=== PATIENT | female | born 1940 | race Caucasian/White ===

== ENCOUNTER 2016-10-13 03:45 | Emergency (ER) | payer MEDICARE, MEDICAID ==
[~2016-10-13] VITALS: Ht 165.1 cm; Wt 56.0 kg
[~2016-10-13 03:45] MED LIST: ACET-3161 PO; ATOR40TA70 PO; LEVO100T9 PO; LISI-186 PO
[2016-10-13] MEDS ORDERED: MORPHINE SULFATE 4 MG/ML CPJ (NOT FOR IM USE) IV STA (06:19)
[2016-10-13] MEDS ORDERED: ONDANSETRON HCL 4MG/2ML VIAL IV STA (06:19)
[2016-10-13 07:05] LABS: HEMATOCRIT. 34.9 % (36.0-48.0); MEAN CORPUSCULAR VOLUME 87.5 fL (81.0-99.0); MEAN PLATELET VOLUME 9.9 fl (7.4-10.4); RED BLOOD CELL COUNT 3.98 mill/uL (4.2-5.4); RED CELL DISTRIBUTION WIDTH 16.5 % (11.6-14.6)
[2016-10-13 08:00] LABS: CLARITY URINE CLOUDY (CLEAR); COLOR URINE YELLOW (YELLOW); PH URINE 5.5 (4.5-8.0); PROTEIN URINE NEGATIVE (NEGATIVE); SPECIFIC GRAVITY URINE 1.019 (1.005-1.030)
[2016-10-13 08:01] LABS: GLUCOSE URINE 2+ (NEGATIVE); KETONES URINE TRACE (NEGATIVE); LEUKOCYTE ESTERASE URINE 3+ (NEGATIVE); NITRITE URINE POSITIVE (NEGATIVE); OCCULT BLOOD URINE TRACE (NEGATIVE); UROBILINOGEN URINE 0.2 E.U./dL (0.2-1.0)
[2016-10-13] MEDS ORDERED: CEFTRIAXONE 1 G PREMIX 50 ML IV ONE (08:15)
[2016-10-13 08:17] LABS: HEMOGLOBIN. 11.5 g/dL (12.0-16.0); MEAN CORPUSCULAR HEMOGLOBIN 28.9 pg (28.0-32.0)
[2016-10-13 08:21] LABS: CARBON DIOXIDE 25 mEq/L (21-32); CHLORIDE 94 mEq/L (98-107)
[2016-10-13 09:01] LABS: PLATELET ESTIMATE NORMAL
[2016-10-13 09:02] LABS: PLATELET 172 x1000/uL (130-400)
[2016-10-13 09:59] VITALS: BP 120/76
== END 2016-10-13 11:11 | disposition home or self-care (01) ==
LOC: ER 07:29
DX: N39.0 Urinary tract infection, site not specified (principal); I10 Essential (primary) hypertension; Z90.49 Acquired absence of other specified parts of digestive tract
CPT/HCPCS: 36415; 74176; 80053; 81001; 83690; 85025; 93005; 96365; 96375; 99285; J0696; J2270; J2405

== ENCOUNTER 2016-12-12 06:37 | Emergency (ER) | payer MEDICARE, MEDICAID ==
[~2016-12-12] VITALS: Ht 165.1 cm; Wt 52.0 kg
[2016-12-12] MEDS ORDERED: KETOROLAC 30MG/ML VIAL IV STA (07:07)
[2016-12-12] MEDS ORDERED: SODIUM CHLORIDE 0.9% 500 ML IV ONE (08:08)
[2016-12-12] MEDS ORDERED: MORPHINE SULFATE 4 MG/ML CPJ (NOT FOR IM USE) IV ONE (08:15)
[2016-12-12 08:16] LABS: HEMATOCRIT. 33.2 % (36.0-48.0); MEAN CORPUSCULAR VOLUME 89.4 fL (81.0-99.0); MEAN PLATELET VOLUME 8.2 fl (7.4-10.4); PLATELET 263 x1000/uL (130-400); RED BLOOD CELL COUNT 3.71 mill/uL (4.2-5.4); RED CELL DISTRIBUTION WIDTH 15.2 % (11.6-14.6)
[2016-12-12 08:17] LABS: HEMOGLOBIN. 11.1 g/dL (12.0-16.0)
[2016-12-12 08:18] LABS: MEAN CORPUSCULAR HEMOGLOBIN 29.9 pg (28.0-32.0)
[2016-12-12 08:22] LABS: CARBON DIOXIDE 21 mEq/L (21-32); CHLORIDE 103 mEq/L (98-107); PLATELET ESTIMATE NORMAL
[2016-12-12 08:32] LABS: INR 0.9; PROTHROMBIN TIME 9.7 sec (9.4-11.6)
[2016-12-12 09:38] LABS: CLARITY URINE CLOUDY (CLEAR); COLOR URINE YELLOW (YELLOW); GLUCOSE URINE 3+ (NEGATIVE); KETONES URINE NEGATIVE (NEGATIVE); LEUKOCYTE ESTERASE URINE 2+ (NEGATIVE); NITRITE URINE POSITIVE (NEGATIVE); OCCULT BLOOD URINE NEGATIVE (NEGATIVE); PROTEIN URINE NEGATIVE (NEGATIVE); SPECIFIC GRAVITY URINE 1.022 (1.005-1.030); UROBILINOGEN URINE 0.2 E.U./dL (0.2-1.0)
[2016-12-12] MEDS ORDERED: CEFTRIAXONE 1 G PREMIX 50 ML IV ONE (10:00)
[2016-12-12 11:15] VITALS: BP 145/71
== END 2016-12-12 11:36 | disposition home or self-care (01) ==
LOC: ER 07:14
DX: N39.0 Urinary tract infection, site not specified (principal); K59.00 Constipation, unspecified; R06.02 Shortness of breath; R07.2 Precordial pain; I10 Essential (primary) hypertension; E11.9 Type 2 diabetes mellitus without complications; E78.00 Pure hypercholesterolemia, unspecified; I25.2 Old myocardial infarction; M19.90 Unspecified osteoarthritis, unspecified site; Z86.73 Personal history of transient ischemic attack (TIA), and cerebral infarction without residual deficits; Z90.49 Acquired absence of other specified parts of digestive tract
CPT/HCPCS: 36415; 74176; 80053; 81001; 82962; 83690; 85025; 85610; 93005; 96361; 96365; 96375; 99285; J0696; J2270; J7040; J7030

== ENCOUNTER 2016-12-14 12:40 | Emergency (ER) | payer MEDICAID, MEDICARE ==
[~2016-12-14] VITALS: Ht 157.5 cm; Wt 65.0 kg
[2016-12-14] MEDS: KETOROLAC 30MG/ML VIAL IV STA ×2 (13:39→13:41)
[2016-12-14] MEDS: ONDANSETRON HCL 4MG/2ML VIAL IV STA ×2 (13:40→13:42)
[2016-12-14 14:22] LABS: RED BLOOD CELL COUNT 3.82 mill/uL (4.2-5.4)
[2016-12-14 14:23] LABS: HEMATOCRIT. 33.9 % (36.0-48.0); HEMOGLOBIN. 11.1 g/dL (12.0-16.0); MEAN CORPUSCULAR HEMOGLOBIN 29.1 pg (28.0-32.0)
[2016-12-14 14:24] LABS: MEAN PLATELET VOLUME 8.4 fl (7.4-10.4); PLATELET 251 x1000/uL (130-400); RED CELL DISTRIBUTION WIDTH 15.5 % (11.6-14.6)
[2016-12-14] MEDS ORDERED: IOHEXOL-300 100 ML BOTTLE ONE (14:39)
[2016-12-14] MEDS ORDERED: SODIUM CHLORIDE 0.9% 10ML VIAL ONE (14:39)
[2016-12-14 14:42] LABS: PROTHROMBIN TIME 10.1 sec (9.4-11.6)
[2016-12-14 15:18] LABS: PLATELET ESTIMATE NORMAL
[2016-12-14 15:31] LABS: CHLORIDE 102 mEq/L (98-107)
[2016-12-14 15:40] LABS: CARBON DIOXIDE 23 mEq/L (21-32)
[2016-12-14 16:52] LABS: CLARITY URINE CLEAR (CLEAR); COLOR URINE YELLOW (YELLOW); GLUCOSE URINE TRACE (NEGATIVE); KETONES URINE TRACE (NEGATIVE); LEUKOCYTE ESTERASE URINE NEGATIVE (NEGATIVE); NITRITE URINE NEGATIVE (NEGATIVE); OCCULT BLOOD URINE NEGATIVE (NEGATIVE); PH URINE 5.5 (4.5-8.0); PROTEIN URINE TRACE (NEGATIVE); SPECIFIC GRAVITY URINE 1.016 (1.005-1.030); UROBILINOGEN URINE 0.2 E.U./dL (0.2-1.0)
[2016-12-14 17:09] VITALS: BP 156/90
== END 2016-12-14 17:12 | disposition home or self-care (01) ==
LOC: ER 12:40
DX: K59.00 Constipation, unspecified (principal); N39.0 Urinary tract infection, site not specified; G89.29 Other chronic pain; R10.13 Epigastric pain; I10 Essential (primary) hypertension; E11.9 Type 2 diabetes mellitus without complications; E78.00 Pure hypercholesterolemia, unspecified; I25.2 Old myocardial infarction; Z86.73 Personal history of transient ischemic attack (TIA), and cerebral infarction without residual deficits
CPT/HCPCS: 36415; 74177; 80053; 81001; 83690; 85025; 85610; 93005; 99285; A4216; J1885; J2405; Q9967

== ENCOUNTER 2017-01-03 03:09 | Inpatient (IN) | payer MEDICARE, MEDICAID ==
[~2017-01-03] VITALS: Ht 165.1 cm; Wt 59.0 kg
[2017-01-03] MEDS ORDERED: SODIUM CHLORIDE 0.9% 500 ML IV ONE (06:02)
[2017-01-03] MEDS ORDERED: FAMOTIDINE 20MG/2ML VIAL IV STA (06:22)
[2017-01-03] MEDS ORDERED: MORPHINE SULFATE 4 MG/ML CPJ (NOT FOR IM USE) IV STA (06:22)
[2017-01-03] MEDS ORDERED: ONDANSETRON HCL 4MG/2ML VIAL IV STA (06:22)
[2017-01-03 06:38] LABS: HEMATOCRIT. 36.2 % (36.0-48.0); HEMOGLOBIN. 12.7 g/dL (12.0-16.0); MEAN CORPUSCULAR HEMOGLOBIN 31.2 pg (28.0-32.0); MEAN CORPUSCULAR VOLUME 88.9 fL (81.0-99.0); MEAN PLATELET VOLUME 9.2 fl (7.4-10.4); RED BLOOD CELL COUNT 4.07 mill/uL (4.2-5.4); RED CELL DISTRIBUTION WIDTH 15.1 % (11.6-14.6)
[2017-01-03 06:48] LABS: PARTIAL THROMBOPLASTIN TIME 24.1 sec (23.4-31.0); PROTHROMBIN TIME 10.1 sec (9.4-11.6)
[2017-01-03 06:55] LABS: CARBON DIOXIDE 24 mEq/L (21-32); CHLORIDE 97 mEq/L (98-107); TROPONIN I < 0.02 ng/mL (0.00-0.04)
[2017-01-03 07:20] LABS: NUCLEATED RED BLOOD CELLS 1 /100 WBC
[2017-01-03 07:21] LABS: PLATELET ESTIMATE NORMAL
[2017-01-03 07:22] LABS: PLATELET 232 x1000/uL (130-400)
[2017-01-03 10:30] VITALS: BP 160/68
[2017-01-03 12:00] VITALS: BP 177/105
[2017-01-03] MEDS ORDERED: DEXTROSE 50% WATER 50ML SYRINGE IV PRN (12:00)
[2017-01-03] MEDS ORDERED: CLONIDINE 0.1MG TABLET PO PRN (12:00)
[2017-01-03] MEDS: BLOOD SUGAR DIAGNOSTIC STRIP TEST SCH ×3 (12:24→21:37)
[2017-01-03] MEDS: ENOXAPARIN 40MG/0.4ML SYR SUBCUT SCH (12:30)
[2017-01-03] MEDS: INSULIN LISPRO 100 UNITS/ML SUBCUT SCH ×3 (12:36→21:37)
[2017-01-03] MEDS: MORPHINE SULFATE 4 MG/ML CPJ (NOT FOR IM USE) IV PRN ×2 (12:59→21:40)
[2017-01-03] MEDS ORDERED: KETOROLAC 15MG/ML VIAL IV PRN (13:00)
[2017-01-03] MEDS: PANTOPRAZOLE SODIUM 40 MG/VIAL IV SCH (16:19)
[2017-01-03] MEDS: ONDANSETRON HCL 4MG/2ML VIAL IV PRN ×2 (16:19→22:11)
[2017-01-03 17:00] VITALS: BP 90/49
[2017-01-03] MEDS: SODIUM CHLORIDE 0.9% 1,000 ML IV SCH (18:16)
[2017-01-03 20:00] VITALS: BP 102/55
[2017-01-04] VITALS: BP 110/63
[2017-01-04 04:00] VITALS: BP 138/65
[2017-01-04] MEDS: SODIUM CHLORIDE 0.9% 1,000 ML IV SCH (05:25)
[2017-01-04] MEDS: ONDANSETRON HCL 4MG/2ML VIAL IV PRN (05:26)
[2017-01-04] MEDS: MORPHINE SULFATE 4 MG/ML CPJ (NOT FOR IM USE) IV PRN ×2 (05:30→09:50)
[2017-01-04] MEDS: BLOOD SUGAR DIAGNOSTIC STRIP TEST SCH ×2 (06:45→11:52)
[2017-01-04] MEDS: INSULIN LISPRO 100 UNITS/ML SUBCUT SCH ×2 (06:48→12:19)
[2017-01-04 07:26] LABS: HEMATOCRIT 33.1 % (36.0-48.0); HEMOGLOBIN 11.4 g/dL (12.0-16.0)
[2017-01-04 08:00] VITALS: BP 144/77
[2017-01-04] MEDS: PANTOPRAZOLE SODIUM 40 MG/VIAL IV SCH (08:54)
[2017-01-04] MEDS: ENOXAPARIN 40MG/0.4ML SYR SUBCUT SCH (08:59)
[2017-01-04] MEDS ORDERED: ACETAMINOPHEN 325MG TABLET PO PRN (12:15)
[2017-01-04] MEDS ORDERED: PROT40 PO (12:55)
[2017-01-04] MEDS ORDERED: LACTULOSE 20G/30ML UDC PO SCH (13:00)
[2017-01-04 13:26] LABS: HEMATOCRIT. 33.1 % (36.0-48.0); HEMOGLOBIN. 11.4 g/dL (12.0-16.0); MEAN CORPUSCULAR HEMOGLOBIN 30.9 pg (28.0-32.0); MEAN CORPUSCULAR VOLUME 89.3 fL (81.0-99.0); MEAN PLATELET VOLUME 9.4 fl (7.4-10.4); PLATELET 162 x1000/uL (130-400); RED CELL DISTRIBUTION WIDTH 15.3 % (11.6-14.6)
[2017-01-04 13:46] LABS: AMYLASE 26 IU/L (25-115); CARBON DIOXIDE 24 mEq/L (21-32); CHLORIDE 101 mEq/L (98-107)
[2017-01-04 13:56] VITALS: BP 151/75
[2017-01-04] MEDS ORDERED: LIDOCAINE 5% PATCH TOP SCH (14:00)
[2017-01-04 14:02] LABS: NUCLEATED RED BLOOD CELLS 1 /100 WBC
[2017-01-04] MEDS ORDERED: PANTOPRAZOLE SODIUM 40 MG/VIAL IV SCH (21:00)
[2017-03-05] MEDS ORDERED: TRAM50TA3 PO (18:39)
[2017-03-05] MEDS ORDERED: CIPR-168 PO (18:39)
== END 2017-01-04 14:15 | disposition home or self-care (01) | DRG 254 ==
LOC: ER 03:10 → EDBEDREQ 07:19 → ENRESERV 07:50 → 8WST 08:11 → EDBEDREQTM 08:13 → EDBEDREQ 08:13
PROVIDERS: ADMIT Family Medicine; ATTEND Family Medicine
DX: K92.1 Melena (principal); K31.84 Gastroparesis; E11.43 Type 2 diabetes mellitus with diabetic autonomic (poly)neuropathy; N39.0 Urinary tract infection, site not specified; I10 Essential (primary) hypertension; E78.00 Pure hypercholesterolemia, unspecified; E78.1 Pure hyperglyceridemia; E78.5 Hyperlipidemia, unspecified; E89.0 Postprocedural hypothyroidism; Z96.641 Presence of right artificial hip joint; M19.90 Unspecified osteoarthritis, unspecified site; G89.29 Other chronic pain; M81.0 Age-related osteoporosis without current pathological fracture; Z87.81 Personal history of (healed) traumatic fracture; Z90.49 Acquired absence of other specified parts of digestive tract; Z90.710 Acquired absence of both cervix and uterus; Z79.899 Other long term (current) drug therapy; Z98.891 History of uterine scar from previous surgery
CPT/HCPCS: 36415; 71010; 74000; 74176; 80053; 80076; 82150; 82248; 82962; 83605; 83690; 83735; 83880; 84484; 85014; 85018; 85025; 85610; 85730; 87040; 93005; 96361; 96374; 96375; 99285; C9113; J1650; J1815; J1885; J2270; J2405; J3490; J7030; J7040

== ENCOUNTER 2017-06-26 23:54 | Inpatient (IN) | payer MEDICARE, MEDICAID ==
[~2017-06-26] VITALS: Ht 170.2 cm; Wt 67.6 kg
[~2017-06-26 23:54] MED LIST changes: +CIPR-168 PO; +PROT40 PO; +TRAM50TA3 PO
[2017-06-27] MEDS ORDERED: MORPHINE SULFATE 4 MG/ML CPJ (NOT FOR IM USE) IV STA (00:54)
[2017-06-27 01:27] LABS: CHLORIDE 96 mEq/L (98-107)
[2017-06-27 01:33] LABS: TROPONIN I < 0.02 ng/mL (0.00-0.04)
[2017-06-27] MEDS ORDERED: SODIUM CHLORIDE 0.9% 1,000 ML IV ONE (02:00)
[2017-06-27 02:06] LABS: INR 0.9; PROTHROMBIN TIME 9.8 sec (9.4-11.6)
[2017-06-27 02:10] LABS: HEMATOCRIT. 37.5 % (36.0-48.0); MEAN CORPUSCULAR VOLUME 88.1 fL (81.0-99.0); RED BLOOD CELL COUNT 4.26 mill/uL (4.2-5.4)
[2017-06-27 02:11] LABS: MEAN PLATELET VOLUME 9.4 fl (7.4-10.4); PLATELET 235 x1000/uL (130-400); RED CELL DISTRIBUTION WIDTH 15.5 % (11.6-14.6)
[2017-06-27 02:12] LABS: HEMOGLOBIN. 12.1 g/dL (12.0-16.0); MEAN CORPUSCULAR HEMOGLOBIN 28.4 pg (28.0-32.0)
[2017-06-27 03:43] LABS: CLARITY URINE CLEAR (CLEAR); COLOR URINE YELLOW (YELLOW); KETONES URINE TRACE (NEGATIVE); LEUKOCYTE ESTERASE URINE 2+ (NEGATIVE); NITRITE URINE NEGATIVE (NEGATIVE); OCCULT BLOOD URINE NEGATIVE (NEGATIVE); PH URINE 5.5 (4.5-8.0); PROTEIN URINE 1+ (NEGATIVE); SPECIFIC GRAVITY URINE 1.016 (1.005-1.030); UROBILINOGEN URINE 0.2 E.U./dL (0.2-1.0)
[2017-06-27] MEDS ORDERED: CEFTRIAXONE 1 G PREMIX 50 ML IV SCH (04:30)
[2017-06-27 04:49] LABS: PLATELET ESTIMATE NORMAL
[2017-06-27] MEDS ORDERED: MORPHINE SULFATE 4 MG/ML CPJ (NOT FOR IM USE) IV ONE (06:15)
[2017-06-27 08:40] VITALS: BP 169/83
[2017-06-27] MEDS ORDERED: ZOLPIDEM TARTRATE 5MG TABLET PO PRN (10:00)
[2017-06-27] MEDS ORDERED: NA PHOS,M-B/NA PHOS,DI-BA ENEMA 118ML PR PRN (10:00)
[2017-06-27] MEDS ORDERED: NITROGLYCERIN 0.4MG TABLET SL SL PRN (10:00)
[2017-06-27] MEDS ORDERED: DIPHENHYDRAMINE 50MG/ML VIAL IV PRN (10:00)
[2017-06-27] MEDS ORDERED: ACETAMINOPHEN 325MG TABLET PO PRN (10:00)
[2017-06-27] MEDS ORDERED: GUAIFENESIN 200MG/10ML SUGAR FREE UDC PO PRN (10:00)
[2017-06-27] MEDS ORDERED: DOCUSATE SODIUM 100MG CAPSULE PO PRN (10:00)
[2017-06-27] MEDS ORDERED: CLONIDINE 0.1MG TABLET PO PRN (10:00)
[2017-06-27] MEDS ORDERED: ONDANSETRON HCL 4MG/2ML VIAL IV PRN (10:00)
[2017-06-27] MEDS ORDERED: MAGNESIUM/ALUMINUM HYDROXIDE/SIMETHICONE 30ML UDC PO PRN (10:00)
[2017-06-27] MEDS ORDERED: IPRATROPIUM/ALBUTEROL 0.5-3(2.5)MG/3ML NEB INH PRN (10:00)
[2017-06-27 12:00] VITALS: BP 158/82
[2017-06-27] MEDS: ENOXAPARIN 40MG/0.4ML SYR SUBCUT SCH (13:24)
[2017-06-27] MEDS: LACTULOSE 20G/30ML UDC PO SCH ×3 (13:28→21:03)
[2017-06-27 16:00] VITALS: BP 158/77
[2017-06-27] MEDS: KETOROLAC 30MG/ML VIAL IV PRN (16:24)
[2017-06-27] MEDS ORDERED: DEXTROSE 50% WATER 50ML SYRINGE IV PRN (17:15)
[2017-06-27] MEDS: BLOOD SUGAR DIAGNOSTIC STRIP TEST SCH ×2 (17:20→21:06)
[2017-06-27] MEDS ORDERED: LEVO200T8 PO (18:34)
[2017-06-27] MEDS ORDERED: PANT40TA4 PO (18:34)
[2017-06-27] MEDS ORDERED: METO-539 PO (18:34)
[2017-06-27] MEDS ORDERED: ASPI-1159 PO (18:34)
[2017-06-27] MEDS ORDERED: LOSA50TA20 PO (18:34)
[2017-06-27] MEDS ORDERED: MELO-106 PO (18:34)
[2017-06-27] MEDS ORDERED: TERA1CAP4 PO (18:34)
[2017-06-27] MEDS ORDERED: CALC-816 PO (18:34)
[2017-06-27] MEDS ORDERED: SIMV20TA6 PO (18:34)
[2017-06-27] MEDS ORDERED: ZOLP10TA6 PO (18:34)
[2017-06-27] MEDS: INSULIN LISPRO 100 UNITS/ML SUBCUT SCH ×2 (18:52→21:00)
[2017-06-27 20:00] VITALS: BP 174/88
[2017-06-27] MEDS: METOPROLOL TARTRATE 25MG TABLET PO SCH (21:02)
[2017-06-27] MEDS: INSULIN GLARGINE UD 100 UNITS/ML SYR SUBCUT SCH (22:39)
[2017-06-28] VITALS: BP 168/84
[2017-06-28 04:00] VITALS: BP 150/79
[2017-06-28 05:18] LABS: *AMPHETAMINES SCREEN URINE NEGATIVE (NEGATIVE); *BARBITURATES SCREEN URINE NEGATIVE (NEGATIVE); *BENZODIAZEPINES SCREEN URINE NEGATIVE (NEGATIVE); *COCAINE SCREEN URINE NEGATIVE (NEGATIVE); METHADONE URINE SCREEN NEGATIVE (NEGATIVE)
[2017-06-28 05:24] LABS: CANNABINOID URINE SCREEN NEGATIVE (NEGATIVE); OPIATES URINE SCREEN PRESUMTIVE POSITIVE (NEGATIVE); PHENCYCLIDINE URINE SCREEN NEGATIVE (NEGATIVE)
[2017-06-28 06:26] LABS: HEMATOCRIT. 35.7 % (36.0-48.0); HEMOGLOBIN. 12.2 g/dL (12.0-16.0); MEAN CORPUSCULAR VOLUME 87.6 fL (81.0-99.0); MEAN PLATELET VOLUME 9.3 fl (7.4-10.4); PLATELET 103 x1000/uL (130-400); RED BLOOD CELL COUNT 4.07 mill/uL (4.2-5.4)
[2017-06-28] MEDS: CEFTRIAXONE 1 G PREMIX 50 ML IV SCH (06:27)
[2017-06-28] MEDS: LACTULOSE 20G/30ML UDC PO SCH ×3 (06:28→21:06)
[2017-06-28] MEDS: BLOOD SUGAR DIAGNOSTIC STRIP TEST SCH ×4 (06:37→20:07)
[2017-06-28] MEDS: INSULIN LISPRO 100 UNITS/ML SUBCUT SCH ×5 (07:50→21:00)
[2017-06-28 08:00] VITALS: BP 131/70
[2017-06-28 08:01] LABS: CHLORIDE 102 mEq/L (98-107)
[2017-06-28] MEDS: POTASSIUM CHLORIDE 20MEQ TABLET SR PO SCH (10:00)
[2017-06-28] MEDS: ENOXAPARIN 40MG/0.4ML SYR SUBCUT SCH (10:00)
[2017-06-28] MEDS: PANTOPRAZOLE SODIUM 40 MG/VIAL IV SCH (10:00)
[2017-06-28] MEDS: METOPROLOL TARTRATE 25MG TABLET PO SCH ×2 (10:00→20:04)
[2017-06-28 12:00] VITALS: BP 165/80
[2017-06-28 16:00] VITALS: BP 143/76
[2017-06-28] MEDS: KETOROLAC 30MG/ML VIAL IV PRN (17:06)
[2017-06-28 20:00] VITALS: BP_SYST 163; BP_SYST 63; BP_DIAS 92
[2017-06-28] MEDS: INSULIN GLARGINE UD 100 UNITS/ML SYR SUBCUT SCH (21:07)
[2017-06-28 23:56] LABS: PLATELET ESTIMATE NORMAL
[2017-06-29] VITALS: BP 192/103
[2017-06-29 01:00] VITALS: BP 155/78
[2017-06-29 04:00] VITALS: BP 133/45
[2017-06-29] MEDS: LACTULOSE 20G/30ML UDC PO SCH ×3 (06:00→21:15)
[2017-06-29] MEDS: CEFTRIAXONE 1 G PREMIX 50 ML IV SCH (06:06)
[2017-06-29] MEDS: BLOOD SUGAR DIAGNOSTIC STRIP TEST SCH ×4 (07:26→20:34)
[2017-06-29 08:00] VITALS: BP 101/62
[2017-06-29] MEDS: INSULIN LISPRO 100 UNITS/ML SUBCUT SCH ×4 (09:45→21:20)
[2017-06-29] MEDS: POTASSIUM CHLORIDE 20MEQ TABLET SR PO SCH (09:45)
[2017-06-29] MEDS: METOPROLOL TARTRATE 25MG TABLET PO SCH ×2 (09:47→20:26)
[2017-06-29] MEDS: PANTOPRAZOLE SODIUM 40 MG/VIAL IV SCH (09:47)
[2017-06-29] MEDS: ENOXAPARIN 40MG/0.4ML SYR SUBCUT SCH (10:00)
[2017-06-29] MEDS: KETOROLAC 30MG/ML VIAL IV PRN ×3 (11:22→23:28)
[2017-06-29] MEDS ORDERED: LEVOTHYROXINE SODIUM 150MCG TABLET PO SCH (11:45)
[2017-06-29 12:00] VITALS: BP 132/70
[2017-06-29 16:00] VITALS: BP 106/54
[2017-06-29] MEDS: INSULIN GLARGINE UD 100 UNITS/ML SYR SUBCUT SCH (21:20)
[2017-06-30] VITALS: BP 133/67
[2017-06-30 04:00] VITALS: BP 133/55
[2017-06-30] MEDS: LACTULOSE 20G/30ML UDC PO SCH (05:24)
[2017-06-30] MEDS: CEFTRIAXONE 1 G PREMIX 50 ML IV SCH (05:24)
[2017-06-30] MEDS: KETOROLAC 30MG/ML VIAL IV PRN (05:24)
[2017-06-30] MEDS: BLOOD SUGAR DIAGNOSTIC STRIP TEST SCH ×2 (06:32→12:34)
[2017-06-30] MEDS ORDERED: LEVOTHYROXINE SODIUM 200MCG TABLET PO SCH (07:20)
[2017-06-30 07:35] LABS: HEMATOCRIT 36.2 % (36.0-48.0); HEMOGLOBIN 12.4 g/dL (12.0-16.0); MEAN CORPUSCULAR HEMOGLOBIN 30.4 pg (28.0-32.0); MEAN CORPUSCULAR VOLUME 88.6 fL (81.0-99.0); PLATELET 120 x1000/uL (130-400); RED BLOOD CELL COUNT 4.09 mill/uL (4.2-5.4); RED CELL DISTRIBUTION WIDTH 15.2 % (11.6-14.6)
[2017-06-30 08:00] VITALS: BP 193/90
[2017-06-30] MEDS ORDERED: FAMOTIDINE 20MG/2ML VIAL IV SCH (09:00)
[2017-06-30] MEDS: INSULIN LISPRO 100 UNITS/ML SUBCUT SCH ×2 (09:25→13:07)
[2017-06-30] MEDS: POTASSIUM CHLORIDE 20MEQ TABLET SR PO SCH (09:38)
[2017-06-30] MEDS: METOPROLOL TARTRATE 25MG TABLET PO SCH (09:39)
[2017-06-30] MEDS: ENOXAPARIN 40MG/0.4ML SYR SUBCUT SCH (09:47)
[2017-06-30 10:45] VITALS: BP 158/83
[2017-06-30 12:00] VITALS: BP 159/74
[2017-06-30 14:06] VITALS: BP 159/74
== END 2017-06-30 14:30 | disposition home or self-care (01) | DRG 720 ==
LOC: ER 06-27 00:04 → 6EST 06-27 04:18 → EDBEDREQ 06-27 04:28 → EDBEDREQSVC 06-27 04:28 → ENRESERV 06-27 06:59
PROVIDERS: ADMIT Internal Medicine; ATTEND Internal Medicine
DX: A41.9 Sepsis, unspecified organism (principal); E44.0 Moderate protein-calorie malnutrition; E87.2 Acidosis; E11.65 Type 2 diabetes mellitus with hyperglycemia; N39.0 Urinary tract infection, site not specified; I10 Essential (primary) hypertension; E87.1 Hypo-osmolality and hyponatremia; K59.00 Constipation, unspecified; E03.9 Hypothyroidism, unspecified; E78.00 Pure hypercholesterolemia, unspecified; Z87.442 Personal history of urinary calculi; Z90.49 Acquired absence of other specified parts of digestive tract; Z79.899 Other long term (current) drug therapy; Z68.23 Body mass index [BMI] 23.0-23.9, adult
CPT/HCPCS: 36415; 71045; 74176; 76705; 80053; 80305; 81003; 82962; 83036; 83605; 83690; 84443; 84484; 85025; 85027; 85610; 87086; 93005; 93970; 96361; 96365; 96375; 97165; 99285; C9113; J0696; J1650; J1815; J1885; J2270; J3490; J7050

== ENCOUNTER 2017-09-08 05:04 | Emergency (ER) | payer MEDICARE, MEDICAID ==
[~2017-09-08] VITALS: Ht 165.1 cm; Wt 68.0 kg
[~2017-09-08 05:04] MED LIST changes: +ASPI-1159 PO; +CALC-816 PO; +LEVO200T8 PO; +LEVO500T2 PO; +LINA5TAB PO; +LOSA50TA20 PO; +MELO-106 PO; +METO-539 PO; +PANT40TA4 PO; +SIMV20TA6 PO; +TERA1CAP4 PO; +ZOLP10TA6 PO
[2017-09-08] MEDS ORDERED: SODIUM CHLORIDE 0.9% 1,000 ML IV ONE (06:27)
[2017-09-08] MEDS ORDERED: ONDANSETRON HCL 4MG/2ML VIAL IV STA (06:27)
[2017-09-08] MEDS ORDERED: MORPHINE SULFATE 4 MG/ML CPJ (NOT FOR IM USE) IV STA (06:27)
[2017-09-08 07:37] LABS: HEMATOCRIT. 31.8 % (36.0-48.0); MEAN CORPUSCULAR VOLUME 89.2 fL (81.0-99.0); MEAN PLATELET VOLUME 9.3 fl (7.4-10.4); PLATELET 208 x1000/uL (130-400); RED BLOOD CELL COUNT 3.56 mill/uL (4.2-5.4); RED CELL DISTRIBUTION WIDTH 15.9 % (11.6-14.6)
[2017-09-08 08:22] LABS: HEMOGLOBIN. 10.7 g/dL (12.0-16.0); MEAN CORPUSCULAR HEMOGLOBIN 30.2 pg (28.0-32.0)
[2017-09-08] MEDS ORDERED: KETOROLAC 15MG/ML VIAL IV ONE (08:30)
[2017-09-08] MEDS ORDERED: METOCLOPRAMIDE HCL 10MG/2ML VIAL IV ONE (08:30)
[2017-09-08 08:53] LABS: CHLORIDE 102 mEq/L (98-107)
[2017-09-08 09:32] VITALS: BP 158/88
[2017-09-08 09:43] LABS: CLARITY URINE CLEAR (CLEAR); COLOR URINE YELLOW (YELLOW); KETONES URINE NEGATIVE (NEGATIVE); LEUKOCYTE ESTERASE URINE 2+ (NEGATIVE); NITRITE URINE NEGATIVE (NEGATIVE); OCCULT BLOOD URINE NEGATIVE (NEGATIVE); PH URINE 5.5 (4.5-8.0); PROTEIN URINE NEGATIVE (NEGATIVE); SPECIFIC GRAVITY URINE 1.018 (1.005-1.030); UROBILINOGEN URINE 0.2 E.U./dL (0.2-1.0)
[2017-09-08 10:33] LABS: PLATELET ESTIMATE NORMAL
== END 2017-09-08 10:50 | disposition home or self-care (01) ==
LOC: ER 05:04
DX: G44.89 Other headache syndrome (principal); E86.0 Dehydration; E11.9 Type 2 diabetes mellitus without complications; E78.00 Pure hypercholesterolemia, unspecified; I10 Essential (primary) hypertension; R94.31 Abnormal electrocardiogram [ECG] [EKG]; Z79.82 Long term (current) use of aspirin
CPT/HCPCS: 36415; 70450; 71045; 80053; 81003; 83880; 84484; 85025; 85610; 93005; 96361; 96374; 96375; 99285; J1885; J2270; J2405; J2765; J7030

== ENCOUNTER 2018-03-12 17:59 | Emergency (ER) | payer MEDICARE, MEDICAID ==
[~2018-03-12] VITALS: Ht 165.1 cm; Wt 58.0 kg
[~2018-03-12 17:59] MED LIST changes: +FERR236T3 MT; -LEVO200T8 PO; -LEVO500T2 PO; -LINA5TAB PO; -LISI-186 PO; -LOSA50TA20 PO; -MELO-106 PO; -METO-539 PO; -PANT40TA4 PO; -TERA1CAP4 PO; -TRAM50TA3 PO; -ZOLP10TA6 PO
[2018-03-12] MEDS ORDERED: MORPHINE SULFATE 4 MG/ML CPJ (NOT FOR IM USE) IV STA (20:18)
[2018-03-12 21:15] VITALS: BP 142/55
== END 2018-03-12 21:45 | disposition home or self-care (01) ==
LOC: ER 17:59
DX: M25.531 Pain in right wrist (principal); E78.00 Pure hypercholesterolemia, unspecified; E11.9 Type 2 diabetes mellitus without complications; I10 Essential (primary) hypertension; M81.0 Age-related osteoporosis without current pathological fracture; Z90.49 Acquired absence of other specified parts of digestive tract; Z88.6 Allergy status to analgesic agent; W01.0XXA Fall on same level from slipping, tripping and stumbling without subsequent striking against object, initial encounter; Y93.89 Activity, other specified; Y92.018 Other place in single-family (private) house as the place of occurrence of the external cause
CPT/HCPCS: 29125; 73090; 73110; 96374; 99284; J2270

== ENCOUNTER 2018-10-31 03:06 | Emergency (ER) | payer MEDICARE, MEDICAID ==
[~2018-10-31] VITALS: Ht 152.4 cm; Wt 63.0 kg
[~2018-10-31 03:06] MED LIST changes: -ASPI-1159 PO; +ASPI-1393 PO; +CALC-38 PO; -CALC-816 PO
[2018-10-31] MEDS ORDERED: TRAMADOL 50MG TABLET PO PRN (04:15)
[2018-10-31] MEDS ORDERED: ACETAMINOPHEN 325MG TABLET PO ONE (04:15)
[2018-10-31 04:32] LABS: HEMATOCRIT. 34.9 % (36.0-48.0); HEMOGLOBIN. 12.5 g/dL (12.0-16.0); MEAN CORPUSCULAR HEMOGLOBIN 33.1 pg (28.0-32.0); MEAN CORPUSCULAR VOLUME 92.6 fL (81.0-99.0); MEAN PLATELET VOLUME 9.6 fl (7.4-10.4); PLATELET 206 x1000/uL (130-400); RED BLOOD CELL COUNT 3.77 mill/uL (4.2-5.4); RED CELL DISTRIBUTION WIDTH 14.7 % (11.6-14.6)
[2018-10-31 04:43] LABS: CHLORIDE 104 mEq/L (98-107)
[2018-10-31 06:27] LABS: PLATELET ESTIMATE NORMAL
[2018-10-31 07:21] VITALS: BP 165/76
== END 2018-10-31 07:50 | disposition home or self-care (01) ==
LOC: ER 03:06
DX: R07.89 Other chest pain (principal); R73.9 Hyperglycemia, unspecified; I10 Essential (primary) hypertension; Z86.73 Personal history of transient ischemic attack (TIA), and cerebral infarction without residual deficits; Z88.8 Allergy status to other drugs, medicaments and biological substances; Z79.82 Long term (current) use of aspirin
CPT/HCPCS: 36415; 71045; 83880; 84484; 93005; 99284

== ENCOUNTER 2019-03-08 18:00 | Emergency (ER) | payer MEDICARE, MEDICAID ==
[~2019-03-08] VITALS: Ht 165.1 cm; Wt 60.0 kg
[~2019-03-08 18:00] MED LIST changes: -ACET-3161 PO; -CIPR-168 PO; -SIMV20TA6 PO
[2019-03-08] MEDS ORDERED: SODIUM CHLORIDE 0.9% 1,000 ML IV ONE ×2 (18:28→21:31)
[2019-03-08] MEDS ORDERED: CLONIDINE 0.1MG TABLET PO ONE (18:30)
[2019-03-08] MEDS ORDERED: ACETAMINOPHEN 325MG TABLET PO ONE (18:30)
[2019-03-08 20:24] LABS: CLARITY URINE TURBID (CLEAR); COLOR URINE YELLOW (YELLOW); KETONES URINE NEGATIVE (NEGATIVE); LEUKOCYTE ESTERASE URINE 3+ (NEGATIVE); NITRITE URINE NEGATIVE (NEGATIVE); OCCULT BLOOD URINE TRACE (NEGATIVE); PH URINE 5.5 (4.5-8.0); PROTEIN URINE TRACE (NEGATIVE); SPECIFIC GRAVITY URINE 1.016 (1.005-1.030); UROBILINOGEN URINE 0.2 E.U./dL (0.2-1.0)
[2019-03-08 20:34] LABS: CHLORIDE 102 mEq/L (98-107)
[2019-03-08 20:38] LABS: ETHANOL BLOOD < 10 mg/dL
[2019-03-08 20:38] LABS: BASOPHILS % 0.6 % (0.0-2.0); HEMATOCRIT. 32.6 % (36.0-48.0); HEMOGLOBIN. 10.7 g/dL (12.0-16.0); LYMPHOCYTES % 43.8 % (20.0-50.0); MEAN CORPUSCULAR HEMOGLOBIN 29.7 pg (28.0-32.0); MEAN CORPUSCULAR VOLUME 90.2 fL (81.0-99.0); MEAN PLATELET VOLUME 9.9 fl (7.4-10.4); MONOCYTES % 5.2 % (2.0-8.0); NEUTROPHILS % 48.4 % (40.0-76.0); PLATELET 225 x1000/uL (130-400); RED BLOOD CELL COUNT 3.61 mill/uL (4.2-5.4); RED CELL DISTRIBUTION WIDTH 15.4 % (11.6-14.6)
[2019-03-08] MEDS ORDERED: CEFTRIAXONE 1 G PREMIX 50 ML IV ONE (20:45)
[2019-03-08 21:00] LABS: *BARBITURATES SCREEN URINE NEGATIVE (NEGATIVE); *BENZODIAZEPINES SCREEN URINE NEGATIVE (NEGATIVE); *COCAINE SCREEN URINE NEGATIVE (NEGATIVE)
[2019-03-08 21:01] LABS: *AMPHETAMINES SCREEN URINE NEGATIVE (NEGATIVE); CANNABINOID URINE SCREEN NEGATIVE (NEGATIVE); METHADONE URINE SCREEN NEGATIVE (NEGATIVE); OPIATES URINE SCREEN NEGATIVE (NEGATIVE); PHENCYCLIDINE URINE SCREEN NEGATIVE (NEGATIVE)
[2019-03-08] MEDS ORDERED: GABAPENTIN 100MG CAPSULE PO ONE (21:30)
[2019-03-08 22:40] VITALS: BP 133/69
== END 2019-03-08 22:43 | disposition home or self-care (01) ==
LOC: ER 18:00
DX: N39.0 Urinary tract infection, site not specified (principal); E86.0 Dehydration; E11.65 Type 2 diabetes mellitus with hyperglycemia; Z79.4 Long term (current) use of insulin; M19.90 Unspecified osteoarthritis, unspecified site; E78.00 Pure hypercholesterolemia, unspecified; I10 Essential (primary) hypertension
CPT/HCPCS: 36415; 71045; 80053; 80305; 80320; 81003; 83605; 83690; 83880; 84145; 84484; 85025; 85610; 87804; 93005; 96374; 99284; J0696; J7030; Z7610; G0480

== ENCOUNTER 2019-10-04 00:02 | Inpatient (IN) | payer MEDICARE, MEDICAID ==
[~2019-10-04] VITALS: Ht 157.5 cm; Wt 57.2 kg
[~2019-10-04 00:02] MED LIST changes: -ASPI-1393 PO; +ASPI-1497 PO
[2019-10-04] MEDS ORDERED: SODIUM CHLORIDE 0.9% 500 ML IV ONE (01:00)
[2019-10-04] MEDS ORDERED: MECLIZINE 25MG TABLET PO ONE (01:00)
[2019-10-04 01:20] LABS: HEMATOCRIT. 35.1 % (36.0-48.0); HEMOGLOBIN. 12.7 g/dL (12.0-16.0); MEAN CORPUSCULAR HEMOGLOBIN 33.7 pg (28.0-32.0); MEAN CORPUSCULAR VOLUME 93.4 fL (81.0-99.0); MEAN PLATELET VOLUME 9.4 fl (7.4-10.4); PLATELET 187 x1000/uL (130-400); RED BLOOD CELL COUNT 3.76 mill/uL (4.2-5.4); RED CELL DISTRIBUTION WIDTH 14.6 % (11.6-14.6)
[2019-10-04 01:23] LABS: CHLORIDE 102 mEq/L (98-107)
[2019-10-04 01:24] LABS: INR 0.9; PARTIAL THROMBOPLASTIN TIME 24.1 sec (23.4-31.0)
[2019-10-04 02:33] LABS: PLATELET ESTIMATE NORMAL
[2019-10-04 02:47] LABS: CLARITY URINE CLEAR (CLEAR); COLOR URINE YELLOW (YELLOW); KETONES URINE TRACE (NEGATIVE); LEUKOCYTE ESTERASE URINE TRACE (NEGATIVE); NITRITE URINE POSITIVE (NEGATIVE); OCCULT BLOOD URINE NEGATIVE (NEGATIVE); PH URINE 5.5 (4.5-8.0); PROTEIN URINE 1+ (NEGATIVE); SPECIFIC GRAVITY URINE 1.021 (1.005-1.030); UROBILINOGEN URINE 0.2 E.U./dL (0.2-1.0)
[2019-10-04] MEDS ORDERED: CEFTRIAXONE 1 G PREMIX 50 ML IV ONE (05:15)
[2019-10-04] MEDS ORDERED: NITROGLYCERIN 0.4MG TABLET SL SL PRN (07:00)
[2019-10-04] MEDS ORDERED: MAGNESIUM/ALUMINUM HYDROXIDE/SIMETHICONE 30ML UDC PO PRN (07:00)
[2019-10-04] MEDS ORDERED: ONDANSETRON HCL 4MG/2ML INJ IV PRN (07:00)
[2019-10-04] MEDS ORDERED: ZOLPIDEM TARTRATE 5MG TABLET PO PRN (07:00)
[2019-10-04] MEDS ORDERED: CLONIDINE 0.1MG TABLET PO PRN (07:00)
[2019-10-04] MEDS ORDERED: IPRATROPIUM/ALBUTEROL 0.5-3(2.5)MG/3ML NEB ORI PRN (07:00)
[2019-10-04 07:46] LABS: T4 FREE 1.15 ng/dL (0.76-1.46)
[2019-10-04] MEDS: FAMOTIDINE 20MG TABLET PO SCH (08:00)
[2019-10-04] MEDS: ZINC SULFATE 220 MG ( 50 ) CAPSULE PO SCH (08:00)
[2019-10-04] MEDS: ENOXAPARIN 40MG/0.4ML SYR SUBCUT SCH (08:00)
[2019-10-04] MEDS: TRAMADOL 50MG TABLET PO PRN ×2 (08:00→21:16)
[2019-10-04] MEDS: LISINOPRIL 20MG TABLET PO SCH ×2 (08:00→21:00)
[2019-10-04] MEDS: ASPIRIN 325MG EC TABLET PO SCH (08:00)
[2019-10-04] MEDS: LEVOTHYROXINE SODIUM 112MCG TABLET PO SCH (08:42)
[2019-10-04] MEDS: ASCORBIC ACID 500 MG TABLET PO SCH ×2 (09:06→21:06)
[2019-10-04] MEDS ORDERED: DEXTROSE 50% WATER 50ML SYRINGE IV PRN (10:30)
[2019-10-04] MEDS ORDERED: LEVOFLOXACIN 500MG PREMIX 100 ML IV SCH (12:00)
[2019-10-04] MEDS: BLOOD SUGAR DIAGNOSTIC STRIP TEST SCH ×3 (12:45→21:16)
[2019-10-04] MEDS: INSULIN LISPRO (MEDIUM DOSE) 100 UNITS/ML SUBCUT SCH ×3 (13:35→21:23)
[2019-10-04 14:08] LABS: *AMPHETAMINES SCREEN URINE NEGATIVE (NEGATIVE); *BARBITURATES SCREEN URINE NEGATIVE (NEGATIVE); *BENZODIAZEPINES SCREEN URINE NEGATIVE (NEGATIVE); *COCAINE SCREEN URINE NEGATIVE (NEGATIVE); METHADONE URINE SCREEN NEGATIVE (NEGATIVE); OPIATES URINE SCREEN NEGATIVE (NEGATIVE)
[2019-10-04 14:09] LABS: CANNABINOID URINE SCREEN NEGATIVE (NEGATIVE); PHENCYCLIDINE URINE SCREEN NEGATIVE (NEGATIVE)
[2019-10-04 15:48] VITALS: BP 134/61
[2019-10-04] MEDS: SODIUM CHLORIDE 0.9% 1,000 ML IV SCH (18:11)
[2019-10-04 18:23] LABS: CREATINE KINASE 114 IU/L (26-192)
[2019-10-04 18:24] LABS: CREATINE KINASE MB FRACTION 1.9 ng/mL (0.5-3.6)
[2019-10-04 20:21] VITALS: BP 89/46
[2019-10-04 20:30] VITALS: BP 93/48
[2019-10-04] MEDS: ATORVASTATIN CALCIUM 40MG TABLET PO SCH (21:06)
[2019-10-05 00:37] VITALS: BP 131/59
[2019-10-05 02:09] LABS: CREATINE KINASE 95 IU/L (26-192)
[2019-10-05 02:10] LABS: CREATINE KINASE MB FRACTION 1.3 ng/mL (0.5-3.6)
[2019-10-05 04:00] VITALS: BP 111/44
[2019-10-05] MEDS ORDERED: CEFTRIAXONE 1 G PREMIX 50 ML IV SCH (06:00)
[2019-10-05 06:14] LABS: HEMOGLOBIN. 11.3 g/dL (12.0-16.0); MEAN CORPUSCULAR HEMOGLOBIN 32.7 pg (28.0-32.0); MEAN CORPUSCULAR VOLUME 95.1 fL (81.0-99.0); MEAN PLATELET VOLUME 10.1 fl (7.4-10.4); PLATELET 163 x1000/uL (130-400); RED BLOOD CELL COUNT 3.47 mill/uL (4.2-5.4)
[2019-10-05 06:37] LABS: CHLORIDE 107 mEq/L (98-107)
[2019-10-05] MEDS: LEVOTHYROXINE SODIUM 112MCG TABLET PO SCH (06:38)
[2019-10-05] MEDS: SODIUM CHLORIDE 0.9% 1,000 ML IV SCH ×2 (06:38→18:34)
[2019-10-05] MEDS: BLOOD SUGAR DIAGNOSTIC STRIP TEST SCH ×4 (06:38→21:44)
[2019-10-05 06:43] LABS: PHOSPHORUS 4.1 mg/dL (2.5-4.9)
[2019-10-05 08:00] VITALS: BP 123/57
[2019-10-05] MEDS: CEFTRIAXONE 1 G PREMIX 50 ML IV SCH (09:18)
[2019-10-05] MEDS: ASPIRIN 325MG EC TABLET PO SCH (09:18)
[2019-10-05] MEDS: ASCORBIC ACID 500 MG TABLET PO SCH ×2 (09:18→21:45)
[2019-10-05] MEDS: ZINC SULFATE 220 MG ( 50 ) CAPSULE PO SCH (09:18)
[2019-10-05] MEDS: FAMOTIDINE 20MG TABLET PO SCH (09:18)
[2019-10-05] MEDS: ENOXAPARIN 40MG/0.4ML SYR SUBCUT SCH (09:19)
[2019-10-05] MEDS: INSULIN LISPRO (MEDIUM DOSE) 100 UNITS/ML SUBCUT SCH ×4 (09:20→21:50)
[2019-10-05] MEDS: LISINOPRIL 20MG TABLET PO SCH ×2 (10:07→21:45)
[2019-10-05 12:00] VITALS: BP 128/48
[2019-10-05 13:36] LABS: PLATELET ESTIMATE NORMAL
[2019-10-05] MEDS: LEVOFLOXACIN 250MG PREMIX 50 ML IV SCH (14:49)
[2019-10-05 20:00] VITALS: BP 159/64
[2019-10-05] MEDS: ATORVASTATIN CALCIUM 40MG TABLET PO SCH (21:46)
[2019-10-06] VITALS: BP 131/60
[2019-10-06 04:00] VITALS: BP_SYST 101; BP_SYST 109; BP_SYST 147; BP_SYST 99; BP_DIAS 59; BP_DIAS 65; BP_DIAS 67; BP_DIAS 68
[2019-10-06] MEDS: LEVOTHYROXINE SODIUM 112MCG TABLET PO SCH (06:17)
[2019-10-06] MEDS: BLOOD SUGAR DIAGNOSTIC STRIP TEST SCH ×4 (06:17→21:07)
[2019-10-06] MEDS: SODIUM CHLORIDE 0.9% 1,000 ML IV SCH ×2 (06:17→20:58)
[2019-10-06] MEDS: INSULIN LISPRO (MEDIUM DOSE) 100 UNITS/ML SUBCUT SCH ×4 (06:25→21:18)
[2019-10-06 08:00] VITALS: BP 145/67
[2019-10-06] MEDS: LISINOPRIL 20MG TABLET PO SCH ×2 (09:00→21:07)
[2019-10-06] MEDS: FAMOTIDINE 20MG TABLET PO SCH (09:00)
[2019-10-06] MEDS: CEFTRIAXONE 1 G PREMIX 50 ML IV SCH (10:08)
[2019-10-06] MEDS: ASCORBIC ACID 500 MG TABLET PO SCH ×2 (10:09→21:07)
[2019-10-06] MEDS: ASPIRIN 325MG EC TABLET PO SCH (10:09)
[2019-10-06] MEDS: ENOXAPARIN 40MG/0.4ML SYR SUBCUT SCH (10:09)
[2019-10-06] MEDS: ZINC SULFATE 220 MG ( 50 ) CAPSULE PO SCH (10:10)
[2019-10-06 12:00] VITALS: BP 174/78
[2019-10-06] MEDS: LEVOFLOXACIN 250MG PREMIX 50 ML IV SCH (13:13)
[2019-10-06 16:00] VITALS: BP 162/66
[2019-10-06 20:00] VITALS: BP 126/60
[2019-10-06] MEDS: ATORVASTATIN CALCIUM 40MG TABLET PO SCH (21:07)
[2019-10-06] MEDS: INSULIN GLARGINE UD 100 UNITS/ML SYR SUBCUT SCH (21:17)
[2019-10-07] VITALS: BP 145/73
[2019-10-07 04:00] VITALS: BP 173/100
[2019-10-07] MEDS: BLOOD SUGAR DIAGNOSTIC STRIP TEST SCH ×4 (06:12→20:07)
[2019-10-07] MEDS: LEVOTHYROXINE SODIUM 112MCG TABLET PO SCH (06:20)
[2019-10-07] MEDS: INSULIN LISPRO (MEDIUM DOSE) 100 UNITS/ML SUBCUT SCH ×4 (06:23→20:15)
[2019-10-07 08:00] VITALS: BP 148/83
[2019-10-07] MEDS: ASPIRIN 325MG EC TABLET PO SCH (08:48)
[2019-10-07] MEDS: FAMOTIDINE 20MG TABLET PO SCH (08:48)
[2019-10-07] MEDS: CEFTRIAXONE 1 G PREMIX 50 ML IV SCH (08:48)
[2019-10-07] MEDS: ASCORBIC ACID 500 MG TABLET PO SCH ×2 (08:48→20:06)
[2019-10-07] MEDS: ZINC SULFATE 220 MG ( 50 ) CAPSULE PO SCH (08:49)
[2019-10-07] MEDS: LISINOPRIL 20MG TABLET PO SCH ×2 (08:49→20:07)
[2019-10-07] MEDS: ENOXAPARIN 40MG/0.4ML SYR SUBCUT SCH (08:50)
[2019-10-07] MEDS: SODIUM CHLORIDE 0.9% 1,000 ML IV SCH ×2 (10:55→22:41)
[2019-10-07 12:00] VITALS: BP 132/56
[2019-10-07] MEDS: LEVOFLOXACIN 250MG PREMIX 50 ML IV SCH (14:51)
[2019-10-07 16:00] VITALS: BP 122/52
[2019-10-07 20:00] VITALS: BP 161/74
[2019-10-07] MEDS: ATORVASTATIN CALCIUM 40MG TABLET PO SCH (20:07)
[2019-10-07] MEDS: INSULIN GLARGINE UD 100 UNITS/ML SYR SUBCUT SCH (23:27)
[2019-10-08] VITALS: BP 164/80
[2019-10-08] MEDS: SODIUM CHLORIDE 0.9% 1,000 ML IV SCH (03:59)
[2019-10-08 04:00] VITALS: BP 148/85
[2019-10-08] MEDS: LEVOTHYROXINE SODIUM 112MCG TABLET PO SCH (06:24)
[2019-10-08] MEDS: BLOOD SUGAR DIAGNOSTIC STRIP TEST SCH ×4 (06:44→21:02)
[2019-10-08 08:00] VITALS: BP 169/68
[2019-10-08] MEDS: INSULIN LISPRO (MEDIUM DOSE) 100 UNITS/ML SUBCUT SCH ×4 (09:05→21:42)
[2019-10-08] MEDS: ZINC SULFATE 220 MG ( 50 ) CAPSULE PO SCH (09:07)
[2019-10-08] MEDS: FAMOTIDINE 20MG TABLET PO SCH (09:07)
[2019-10-08] MEDS: ASCORBIC ACID 500 MG TABLET PO SCH ×2 (09:07→21:02)
[2019-10-08] MEDS: CEFTRIAXONE 1 G PREMIX 50 ML IV SCH (09:07)
[2019-10-08] MEDS: FLUDROCORTISONE ACETATE 0.1MG TABLET PO SCH (09:07)
[2019-10-08] MEDS: LISINOPRIL 20MG TABLET PO SCH ×2 (09:07→21:02)
[2019-10-08] MEDS: ENOXAPARIN 40MG/0.4ML SYR SUBCUT SCH (09:08)
[2019-10-08] MEDS: ASPIRIN 325MG EC TABLET PO SCH (09:12)
[2019-10-08] MEDS ORDERED: LEVOFLOXACIN 250MG TABLET PO SCH (11:00)
[2019-10-08 12:00] VITALS: BP_SYST 145; BP_SYST 153; BP_SYST 160; BP_DIAS 60; BP_DIAS 67; BP_DIAS 68
[2019-10-08 16:00] VITALS: BP 148/80
[2019-10-08 20:00] VITALS: BP 167/74
[2019-10-08] MEDS: ATORVASTATIN CALCIUM 40MG TABLET PO SCH (21:02)
[2019-10-08] MEDS: TRAMADOL 50MG TABLET PO PRN (21:40)
[2019-10-08] MEDS: INSULIN GLARGINE UD 100 UNITS/ML SYR SUBCUT SCH (22:57)
[2019-10-09] VITALS: BP 157/72
[2019-10-09 03:57] VITALS: BP 168/78
[2019-10-09] MEDS: LEVOTHYROXINE SODIUM 112MCG TABLET PO SCH (06:20)
[2019-10-09] MEDS: BLOOD SUGAR DIAGNOSTIC STRIP TEST SCH ×4 (06:20→19:48)
[2019-10-09] MEDS: INSULIN LISPRO (MEDIUM DOSE) 100 UNITS/ML SUBCUT SCH ×4 (07:07→21:16)
[2019-10-09 08:00] VITALS: BP 102/44
[2019-10-09] MEDS: FLUDROCORTISONE ACETATE 0.1MG TABLET PO SCH (08:49)
[2019-10-09] MEDS: FAMOTIDINE 20MG TABLET PO SCH (08:49)
[2019-10-09] MEDS: ENOXAPARIN 40MG/0.4ML SYR SUBCUT SCH (08:49)
[2019-10-09] MEDS: LISINOPRIL 20MG TABLET PO SCH ×2 (08:49→21:13)
[2019-10-09] MEDS: ASCORBIC ACID 500 MG TABLET PO SCH ×2 (08:49→21:13)
[2019-10-09] MEDS: ZINC SULFATE 220 MG ( 50 ) CAPSULE PO SCH (08:49)
[2019-10-09 12:00] VITALS: BP 107/63
[2019-10-09 16:00] VITALS: BP_SYST 118; BP_SYST 133; BP_DIAS 71; BP_DIAS 74
[2019-10-09 20:00] VITALS: BP_SYST 112; BP_SYST 155; BP_DIAS 66; BP_DIAS 74
[2019-10-09] MEDS: ATORVASTATIN CALCIUM 40MG TABLET PO SCH (21:13)
[2019-10-09] MEDS: INSULIN GLARGINE UD 100 UNITS/ML SYR SUBCUT SCH (21:17)
[2019-10-10] VITALS: BP 140/68
[2019-10-10 04:00] VITALS: BP 154/71
[2019-10-10] MEDS: BLOOD SUGAR DIAGNOSTIC STRIP TEST SCH ×4 (05:32→19:44)
[2019-10-10] MEDS: LEVOTHYROXINE SODIUM 112MCG TABLET PO SCH (05:53)
[2019-10-10] MEDS: INSULIN LISPRO (MEDIUM DOSE) 100 UNITS/ML SUBCUT SCH ×4 (06:00→21:22)
[2019-10-10 09:06] VITALS: BP 160/71
[2019-10-10] MEDS: ZINC SULFATE 220 MG ( 50 ) CAPSULE PO SCH (09:24)
[2019-10-10] MEDS: ASCORBIC ACID 500 MG TABLET PO SCH (09:25)
[2019-10-10] MEDS: FAMOTIDINE 20MG TABLET PO SCH (09:27)
[2019-10-10] MEDS: ENOXAPARIN 40MG/0.4ML SYR SUBCUT SCH (09:27)
[2019-10-10] MEDS: FLUDROCORTISONE ACETATE 0.1MG TABLET PO SCH (09:27)
[2019-10-10] MEDS: LISINOPRIL 20MG TABLET PO SCH ×2 (09:41→21:21)
[2019-10-10 11:15] LABS: T4 FREE 1.4 ng/dL (0.76-1.46)
[2019-10-10 12:00] VITALS: BP 144/68
[2019-10-10] MEDS ORDERED: REGADENOSON 0.4 MG/5 ML IV SCH (14:00)
[2019-10-10 15:53] VITALS: BP 162/71
[2019-10-10] MEDS: HYDRALAZINE HCL 25MG TABLET PO SCH ×2 (15:54→21:21)
[2019-10-10 16:17] LABS: CREATINE KINASE 103 IU/L (26-192)
[2019-10-10 16:18] LABS: CREATINE KINASE MB FRACTION 1.7 ng/mL (0.5-3.6)
[2019-10-10 20:00] VITALS: BP 155/70
[2019-10-10] MEDS: ATORVASTATIN CALCIUM 40MG TABLET PO SCH (21:21)
[2019-10-10] MEDS: INSULIN GLARGINE UD 100 UNITS/ML SYR SUBCUT SCH (21:22)
[2019-10-10 23:57] LABS: CREATINE KINASE 115 IU/L (26-192)
[2019-10-10 23:58] LABS: CREATINE KINASE MB FRACTION 1.9 ng/mL (0.5-3.6)
[2019-10-11] VITALS (29 sets, daily range): BP systolic 124–156; BP diastolic 58–83
[2019-10-11 04:24] LABS: CHLORIDE 109 mEq/L (98-107)
[2019-10-11 04:31] LABS: HEMATOCRIT 31.6 % (36.0-48.0); HEMOGLOBIN 10.7 g/dL (12.0-16.0); MEAN CORPUSCULAR VOLUME 94.2 fL (81.0-99.0); PLATELET 192 x1000/uL (130-400); RED BLOOD CELL COUNT 3.35 mill/uL (4.2-5.4); RED CELL DISTRIBUTION WIDTH 14.6 % (11.6-14.6)
[2019-10-11 04:32] LABS: CREATINE KINASE 105 IU/L (26-192)
[2019-10-11 04:34] LABS: CREATINE KINASE MB FRACTION 1.3 ng/mL (0.5-3.6); INR 0.9; PROTHROMBIN TIME 10.2 sec (9.6-11.0)
[2019-10-11] MEDS: BLOOD SUGAR DIAGNOSTIC STRIP TEST SCH ×2 (05:28→17:41)
[2019-10-11] MEDS: LEVOTHYROXINE SODIUM 112MCG TABLET PO SCH (05:28)
[2019-10-11] MEDS: INSULIN LISPRO (MEDIUM DOSE) 100 UNITS/ML SUBCUT SCH ×2 (05:29→18:17)
[2019-10-11] MEDS: HYDRALAZINE HCL 25MG TABLET PO SCH ×2 (09:00→21:03)
[2019-10-11] MEDS: FAMOTIDINE 20MG TABLET PO SCH (09:00)
[2019-10-11] MEDS: FLUDROCORTISONE ACETATE 0.1MG TABLET PO SCH (09:00)
[2019-10-11] MEDS: LISINOPRIL 20MG TABLET PO SCH ×2 (09:00→21:00)
[2019-10-11] MEDS: ZINC SULFATE 220 MG ( 50 ) CAPSULE PO SCH (09:00)
[2019-10-11] MEDS ORDERED: THROMBIN (BOVINE) 5000 UNITS/VIAL TOP ONE (10:29)
[2019-10-11] MEDS ORDERED: NORMAL SALINE 0.9% 10 ML SYR ONE (10:29)
[2019-10-11] MEDS ORDERED: SODIUM CHLORIDE 0.9% 2,000 ML ONE (10:30)
[2019-10-11] MEDS ORDERED: LIDOCAINE HCL/EPINEPHRINE 1%-EPI 1:100,000 20 ML VIAL ONE (10:30)
[2019-10-11] MEDS ORDERED: BACITRACIN 50,000 UNITS/VIAL ONE (10:30)
[2019-10-11] MEDS ORDERED: KCL 20MEQ/100ML PREMIX 100 ML IV SCH (12:00)
[2019-10-11] MEDS ORDERED: NICARDIPINE 100 MG in SODIUM CHLORIDE 0.9% 60 ML IV PRN (14:45)
[2019-10-11] MEDS ORDERED: PROPOFOL 200MG/20ML VIAL IV ONE (15:21)
[2019-10-11] MEDS ORDERED: ROCURONIUM BROMIDE 10MG/ML VIAL 5ML IV ONE (15:21)
[2019-10-11] MEDS ORDERED: GLYCOPYRROLATE 0.2 MG/ML 2ML VIAL ONE ×2 (15:21→16:41)
[2019-10-11] MEDS ORDERED: MIDAZOLAM HCL 2 MG/2 ML VIAL ONE (15:21)
[2019-10-11] MEDS ORDERED: FENTANYL CITRATE/PF 50MCG/ML 2ML VIAL ONE (15:21)
[2019-10-11] MEDS ORDERED: NEOSTIGMINE METHYLSULFATE 1MG/ML 10 ML VIAL ONE (15:21)
[2019-10-11] MEDS ORDERED: ONDANSETRON HCL 4MG/2ML INJ ONE ×2 (15:26→16:34)
[2019-10-11] MEDS ORDERED: DEXAMETHASONE 4MG/ML 1ML VIAL ONE ×2 (15:26→16:34)
[2019-10-11] MEDS ORDERED: SODIUM CHLORIDE 0.9% 10ML VIAL ONE ×2 (16:06→16:32)
[2019-10-11] MEDS ORDERED: HYDRALAZINE 20MG/ML VIAL ONE (16:06)
[2019-10-11] MEDS ORDERED: EPHEDRINE SULFATE 50MG/ML VIAL ONE (16:32)
[2019-10-11] MEDS: DEXT 5%/LACTATED RINGERS 1,000 ML IV SCH (17:52)
[2019-10-11] MEDS: DEXAMETHASONE 4MG/ML 1ML VIAL IV SCH (17:52)
[2019-10-11] MEDS: MORPHINE SULFATE 2 MG/ML CPJ (NOT FOR IM USE) IV PRN (18:05)
[2019-10-11] MEDS: ATORVASTATIN CALCIUM 40MG TABLET PO SCH (21:06)
[2019-10-11] MEDS ORDERED: CEFAZOLIN SODIUM 1000MG/VIAL IV SCH (22:00)
[2019-10-12] VITALS (94 sets, daily range): BP systolic 104–174; BP diastolic 25–105
[2019-10-12] MEDS: INSULIN GLARGINE UD 100 UNITS/ML SYR SUBCUT SCH (00:15)
[2019-10-12] MEDS: CEFAZOLIN 1000MG PREMIX 50 ML IV SCH ×3 (00:26→16:30)
[2019-10-12] MEDS: DEXAMETHASONE 4MG/ML 1ML VIAL IV SCH ×3 (00:26→11:31)
[2019-10-12] MEDS: BLOOD SUGAR DIAGNOSTIC STRIP TEST SCH ×4 (00:30→18:00)
[2019-10-12] MEDS: INSULIN LISPRO 100 UNITS/ML SUBCUT SCH ×4 (00:30→18:43)
[2019-10-12] MEDS: DEXT 5%/LACTATED RINGERS 1,000 ML IV SCH ×2 (04:38→11:31)
[2019-10-12] MEDS: LEVOTHYROXINE SODIUM 112MCG TABLET PO SCH (06:07)
[2019-10-12 06:22] LABS: BASOPHILS % 0.2 % (0.0-2.0); HEMATOCRIT. 33.7 % (36.0-48.0); HEMOGLOBIN. 11.5 g/dL (12.0-16.0); LYMPHOCYTES % 9.2 % (20.0-50.0); MEAN CORPUSCULAR VOLUME 94.1 fL (81.0-99.0); MEAN PLATELET VOLUME 10.6 fl (7.4-10.4); MONOCYTES % 2.8 % (2.0-8.0); NEUTROPHILS % 87.8 % (40.0-76.0); PLATELET 172 x1000/uL (130-400); RED BLOOD CELL COUNT 3.58 mill/uL (4.2-5.4); RED CELL DISTRIBUTION WIDTH 15.3 % (11.6-14.6)
[2019-10-12 06:47] LABS: CHLORIDE 108 mEq/L (98-107)
[2019-10-12] MEDS: LISINOPRIL 20MG TABLET PO SCH ×2 (08:08→20:49)
[2019-10-12] MEDS: FLUDROCORTISONE ACETATE 0.1MG TABLET PO SCH (08:09)
[2019-10-12] MEDS: FAMOTIDINE 20MG TABLET PO SCH (08:09)
[2019-10-12] MEDS: HYDRALAZINE HCL 25MG TABLET PO SCH ×2 (08:09→20:49)
[2019-10-12] MEDS: ZINC SULFATE 220 MG ( 50 ) CAPSULE PO SCH (08:09)
[2019-10-12] MEDS: MORPHINE SULFATE 2 MG/ML CPJ (NOT FOR IM USE) IV PRN (09:51)
[2019-10-12] MEDS ORDERED: INSULIN GLARGINE UD 100 UNITS/ML SYR SUBCUT SCH (13:00)
[2019-10-12] MEDS ORDERED: HYDRALAZINE HCL 25MG TABLET PO NR ×2 (14:30→14:45)
[2019-10-12] MEDS ORDERED: AMLODIPINE 10MG TABLET PO NR (14:30)
[2019-10-12] MEDS ORDERED: IOHEXOL-350 100 ML BOTTLE ONE (18:35)
[2019-10-12] MEDS: ATORVASTATIN CALCIUM 40MG TABLET PO SCH (20:48)
[2019-10-13] VITALS: BP 126/63
[2019-10-13] MEDS: DEXT 5%/LACTATED RINGERS 1,000 ML IV SCH ×2 (00:17→05:52)
[2019-10-13] MEDS: CEFAZOLIN 1000MG PREMIX 50 ML IV SCH (00:17)
[2019-10-13] MEDS: BLOOD SUGAR DIAGNOSTIC STRIP TEST SCH ×4 (00:18→17:20)
[2019-10-13 04:00] VITALS: BP 163/68
[2019-10-13] MEDS: INSULIN LISPRO 100 UNITS/ML SUBCUT SCH ×4 (06:01→17:41)
[2019-10-13] MEDS: LEVOTHYROXINE SODIUM 112MCG TABLET PO SCH (06:29)
[2019-10-13 08:00] VITALS: BP 142/63
[2019-10-13] MEDS ORDERED: HYDRALAZINE HCL 25MG TABLET PO SCH (09:00)
[2019-10-13] MEDS: ZINC SULFATE 220 MG ( 50 ) CAPSULE PO SCH (10:01)
[2019-10-13] MEDS: AMLODIPINE 10MG TABLET PO SCH (10:01)
[2019-10-13] MEDS: HYDRALAZINE HCL 25MG TABLET PO SCH ×2 (10:01→22:34)
[2019-10-13] MEDS: FAMOTIDINE 20MG TABLET PO SCH (10:01)
[2019-10-13] MEDS: LISINOPRIL 20MG TABLET PO SCH ×2 (10:02→22:33)
[2019-10-13] MEDS: FLUDROCORTISONE ACETATE 0.1MG TABLET PO SCH (10:02)
[2019-10-13] MEDS ORDERED: MAGNESIUM 1 G PREMIX 100 ML IV SCH (11:00)
[2019-10-13 12:00] VITALS: BP 166/77
[2019-10-13] MEDS: MORPHINE SULFATE 2 MG/ML CPJ (NOT FOR IM USE) IV PRN ×2 (13:44→17:39)
[2019-10-13 16:00] VITALS: BP 124/61
[2019-10-13] MEDS: DOCUSATE SODIUM 100MG CAPSULE PO SCH ×2 (17:00→17:39)
[2019-10-13 20:00] VITALS: BP 122/51
[2019-10-13] MEDS: POLYETHYLENE GLYCOL 3350 (17GM) 1 DOSE PACK PO SCH (22:34)
[2019-10-13] MEDS: METOPROLOL TARTRATE 25MG TABLET PO SCH (22:34)
[2019-10-13] MEDS: ATORVASTATIN CALCIUM 40MG TABLET PO SCH (22:34)
[2019-10-14] VITALS (36 sets, daily range): BP systolic 68–168; BP diastolic 24–93
[2019-10-14] MEDS: BLOOD SUGAR DIAGNOSTIC STRIP TEST SCH ×5 (06:00→23:50)
[2019-10-14 07:12] LABS: BASOPHILS % 0.2 % (0.0-2.0); HEMATOCRIT. 34.7 % (36.0-48.0); HEMOGLOBIN. 11.6 g/dL (12.0-16.0); LYMPHOCYTES % 15.9 % (20.0-50.0); MEAN CORPUSCULAR HEMOGLOBIN 31.5 pg (28.0-32.0); MEAN CORPUSCULAR VOLUME 93.7 fL (81.0-99.0); MEAN PLATELET VOLUME 9.8 fl (7.4-10.4); MONOCYTES % 5.9 % (2.0-8.0); PLATELET 184 x1000/uL (130-400); RED CELL DISTRIBUTION WIDTH 14.9 % (11.6-14.6)
[2019-10-14 07:17] LABS: CHLORIDE 105 mEq/L (98-107)
[2019-10-14] MEDS: METOPROLOL TARTRATE 25MG TABLET PO SCH ×2 (09:00→19:53)
[2019-10-14] MEDS: AMLODIPINE 10MG TABLET PO SCH (09:00)
[2019-10-14] MEDS: ZINC SULFATE 220 MG ( 50 ) CAPSULE PO SCH (09:00)
[2019-10-14] MEDS: FAMOTIDINE 20MG TABLET PO SCH (09:00)
[2019-10-14] MEDS: LISINOPRIL 20MG TABLET PO SCH ×2 (09:00→19:52)
[2019-10-14] MEDS: DOCUSATE SODIUM 100MG CAPSULE PO SCH ×2 (09:00→17:00)
[2019-10-14] MEDS: FLUDROCORTISONE ACETATE 0.1MG TABLET PO SCH (09:00)
[2019-10-14] MEDS: HYDRALAZINE HCL 25MG TABLET PO SCH ×2 (09:00→19:53)
[2019-10-14 10:06] LABS: BG BASE EXCESS 3.3 mmol/L (-2.0-2.0); BG CARBOXYHEMOGLOBIN 0.3 % (0.5-1.5); BG DEOXYHEMOGLOBIN 5.8 % (0.0-5.0); BG FRACTION INSPIRED OXYGEN 40; BG METHEMOGLOBIN 0.2 % (0.0-1.5); BG OXYGEN SATURATION 94.2 % (92.0-98.5); BG OXYHEMOGLOBIN 93.7 % (94.0-97.0); BG PCO2 42.8 mmHg (35.0-45.0); BG PH 7.433 (7.350-7.450); BG SAMPLE SITE RIGHT RADIAL; BG TOTAL HEMOGLOBIN 11.4 g/dL (12.0-18.0); BG VENT MODE NASAL CANNULA
[2019-10-14] MEDS ORDERED: PIPERACILLIN/TAZOBACTAM 3.375 G in DEXT 5% WATER 100 ML IV SCH (12:00)
[2019-10-14] MEDS: ACETYLCYSTEINE 100MG/ML 10% VIAL 4ML INH SCH (12:04)
[2019-10-14] MEDS: IPRATROPIUM/ALBUTEROL 0.5-3(2.5)MG/3ML NEB ORI SCH ×3 (12:04→21:12)
[2019-10-14] MEDS: DEXT 5%/LACTATED RINGERS 1,000 ML IV SCH ×2 (12:45→22:45)
[2019-10-14] MEDS: INSULIN LISPRO 100 UNITS/ML SUBCUT SCH ×4 (14:08→18:39)
[2019-10-14] MEDS: PIPERACILLIN/TAZOBACTAM 2.25 G in DEXTROSE 5% WATER 50 ML IV SCH ×2 (14:08→18:18)
[2019-10-14] MEDS ORDERED: POTASSIUM CHLORIDE INJ 40 MEQ in DEXT 5% WATER 250 ML IV SCH (16:00)
[2019-10-14] MEDS ORDERED: LIDOCAINE HCL 2% JELLY 5ML TOP SCH (16:00)
[2019-10-14] MEDS: ACETAMINOPHEN 325MG TABLET PO PRN (19:52)
[2019-10-14] MEDS: POLYETHYLENE GLYCOL 3350 (17GM) 1 DOSE PACK PO SCH (19:52)
[2019-10-14] MEDS: ATORVASTATIN CALCIUM 40MG TABLET PO SCH (19:53)
[2019-10-14] MEDS: LEVOTHYROXINE SODIUM 112MCG TABLET PO SCH (20:48)
[2019-10-15] VITALS (38 sets, daily range): BP systolic 120–173; BP diastolic 54–112
[2019-10-15] MEDS: PIPERACILLIN/TAZOBACTAM 2.25 G in DEXTROSE 5% WATER 50 ML IV SCH ×4 (00:19→18:44)
[2019-10-15] MEDS: INSULIN LISPRO 100 UNITS/ML SUBCUT SCH ×4 (00:20→17:27)
[2019-10-15] MEDS: ACETYLCYSTEINE 100MG/ML 10% VIAL 4ML INH SCH ×2 (00:38→16:03)
[2019-10-15] MEDS: IPRATROPIUM/ALBUTEROL 0.5-3(2.5)MG/3ML NEB ORI SCH ×6 (00:39→20:58)
[2019-10-15] MEDS: MORPHINE SULFATE 2 MG/ML CPJ (NOT FOR IM USE) IV PRN (01:29)
[2019-10-15] MEDS: BLOOD SUGAR DIAGNOSTIC STRIP TEST SCH ×3 (05:15→17:33)
[2019-10-15] MEDS: LEVOTHYROXINE SODIUM 112MCG TABLET PO SCH (07:35)
[2019-10-15] MEDS: HYDRALAZINE HCL 25MG TABLET PO SCH ×2 (09:05→19:50)
[2019-10-15] MEDS: AMLODIPINE 10MG TABLET PO SCH (09:06)
[2019-10-15] MEDS: DOCUSATE SODIUM 100MG CAPSULE PO SCH (09:06)
[2019-10-15] MEDS: FAMOTIDINE 20MG TABLET PO SCH (09:06)
[2019-10-15] MEDS: FLUDROCORTISONE ACETATE 0.1MG TABLET PO SCH (09:06)
[2019-10-15] MEDS: ZINC SULFATE 220 MG ( 50 ) CAPSULE PO SCH (09:06)
[2019-10-15] MEDS: LISINOPRIL 20MG TABLET PO SCH ×2 (09:07→19:51)
[2019-10-15] MEDS: METOPROLOL TARTRATE 25MG TABLET PO SCH ×2 (09:08→19:51)
[2019-10-15] MEDS: DEXT 5%/LACTATED RINGERS 1,000 ML IV SCH ×2 (09:22→18:21)
[2019-10-15] MEDS: DOCUSATE SODIUM 100MG CAPSULE PO PRN (17:27)
[2019-10-15] MEDS: DOCUSATE SODIUM SUGAR FREE 100MG/10ML UDC NG SCH (17:48)
[2019-10-15] MEDS: POLYETHYLENE GLYCOL 3350 (17GM) 1 DOSE PACK PO SCH (19:50)
[2019-10-15] MEDS: ATORVASTATIN CALCIUM 40MG TABLET PO SCH (21:06)
[2019-10-16] VITALS (45 sets, daily range): BP systolic 116–166; BP diastolic 51–126
[2019-10-16] MEDS: BLOOD SUGAR DIAGNOSTIC STRIP TEST SCH ×4 (00:10→17:26)
[2019-10-16] MEDS: INSULIN LISPRO 100 UNITS/ML SUBCUT SCH ×4 (00:16→17:35)
[2019-10-16] MEDS: IPRATROPIUM/ALBUTEROL 0.5-3(2.5)MG/3ML NEB ORI SCH ×6 (00:43→20:52)
[2019-10-16] MEDS: ACETYLCYSTEINE 100MG/ML 10% VIAL 4ML INH SCH ×2 (00:43→12:30)
[2019-10-16] MEDS: PIPERACILLIN/TAZOBACTAM 2.25 G in DEXTROSE 5% WATER 50 ML IV SCH ×4 (02:30→18:33)
[2019-10-16] MEDS: DEXT 5%/LACTATED RINGERS 1,000 ML IV SCH ×2 (05:03→16:03)
[2019-10-16] MEDS: DOCUSATE SODIUM 100MG CAPSULE PO PRN (08:45)
[2019-10-16] MEDS: ZINC SULFATE 220 MG ( 50 ) CAPSULE PO SCH (08:45)
[2019-10-16] MEDS: FAMOTIDINE 20MG TABLET PO SCH (08:46)
[2019-10-16] MEDS: METOPROLOL TARTRATE 25MG TABLET PO SCH ×2 (08:46→20:37)
[2019-10-16] MEDS: LISINOPRIL 20MG TABLET PO SCH ×2 (08:46→20:38)
[2019-10-16] MEDS: AMLODIPINE 10MG TABLET PO SCH (08:46)
[2019-10-16] MEDS: FLUDROCORTISONE ACETATE 0.1MG TABLET PO SCH (08:47)
[2019-10-16] MEDS: HYDRALAZINE HCL 25MG TABLET PO SCH ×2 (08:47→20:37)
[2019-10-16] MEDS: DOCUSATE SODIUM SUGAR FREE 100MG/10ML UDC NG SCH ×2 (09:00→16:57)
[2019-10-16] MEDS ORDERED: LACTULOSE 20G/30ML UDC NG NR (10:45)
[2019-10-16] MEDS: LEVOTHYROXINE SODIUM 112MCG TABLET PO SCH (12:15)
[2019-10-16 12:50] LABS: BG BASE EXCESS 6.3 mmol/L (-2.0-2.0); BG CARBOXYHEMOGLOBIN 0.3 % (0.5-1.5); BG DEOXYHEMOGLOBIN 3.4 % (0.0-5.0); BG FRACTION INSPIRED OXYGEN 32; BG HCO3 ACT 30.9 mmol/L (22.0-26.0); BG METHEMOGLOBIN 0.2 % (0.0-1.5); BG OXYGEN SATURATION 96.6 % (92.0-98.5); BG OXYHEMOGLOBIN 96.1 % (94.0-97.0); BG PCO2 44.8 mmHg (35.0-45.0); BG PH 7.457 (7.350-7.450); BG PO2 83.7 mmHg (75.0-100.0); BG SAMPLE SITE RIGHT RADIAL; BG TOTAL HEMOGLOBIN 10.8 g/dL (12.0-18.0); BG VENT MODE NASAL CANNULA
[2019-10-16 12:59] LABS: BASOPHILS % 0.3 % (0.0-2.0); EOSINOPHILS % 0.8 % (0.0-5.0); HEMATOCRIT. 30.4 % (36.0-48.0); HEMOGLOBIN. 10.2 g/dL (12.0-16.0); LYMPHOCYTES % 30.6 % (20.0-50.0); MEAN CORPUSCULAR HEMOGLOBIN 31.5 pg (28.0-32.0); MEAN PLATELET VOLUME 8.4 fl (7.4-10.4); MONOCYTES % 5.4 % (2.0-8.0); NEUTROPHILS % 62.9 % (40.0-76.0); PLATELET 286 x1000/uL (130-400); RED BLOOD CELL COUNT 3.23 mill/uL (4.2-5.4); RED CELL DISTRIBUTION WIDTH 14.8 % (11.6-14.6)
[2019-10-16 13:10] LABS: CHLORIDE 102 mEq/L (98-107)
[2019-10-16] MEDS: POLYETHYLENE GLYCOL 3350 (17GM) 1 DOSE PACK PO SCH (20:36)
[2019-10-16] MEDS: ATORVASTATIN CALCIUM 40MG TABLET PO SCH (20:38)
[2019-10-16] MEDS ORDERED: MORPHINE SULFATE 2 MG/ML CPJ (NOT FOR IM USE) IV PRN (23:15)
[2019-10-17] VITALS (32 sets, daily range): BP systolic 120–161; BP diastolic 70–131
[2019-10-17] MEDS: BLOOD SUGAR DIAGNOSTIC STRIP TEST SCH ×4 (00:09→18:10)
[2019-10-17] MEDS: INSULIN LISPRO 100 UNITS/ML SUBCUT SCH ×4 (00:12→18:48)
[2019-10-17] MEDS: PIPERACILLIN/TAZOBACTAM 2.25 G in DEXTROSE 5% WATER 50 ML IV SCH ×4 (00:19→18:46)
[2019-10-17] MEDS: DEXT 5%/LACTATED RINGERS 1,000 ML IV SCH ×3 (00:19→21:03)
[2019-10-17] MEDS: ACETYLCYSTEINE 100MG/ML 10% VIAL 4ML INH SCH ×3 (00:44→20:56)
[2019-10-17] MEDS: IPRATROPIUM/ALBUTEROL 0.5-3(2.5)MG/3ML NEB ORI SCH ×6 (00:46→20:56)
[2019-10-17] MEDS: LEVOTHYROXINE SODIUM 112MCG TABLET PO SCH (06:31)
[2019-10-17] MEDS ORDERED: BISACODYL 10MG SUPP PR SCH (08:00)
[2019-10-17] MEDS: DOCUSATE SODIUM SUGAR FREE 100MG/10ML UDC NG SCH ×2 (08:53→17:00)
[2019-10-17] MEDS: METOPROLOL TARTRATE 25MG TABLET PO SCH ×2 (08:54→21:02)
[2019-10-17] MEDS: AMLODIPINE 10MG TABLET PO SCH (08:54)
[2019-10-17] MEDS: LISINOPRIL 20MG TABLET PO SCH ×2 (08:54→21:03)
[2019-10-17] MEDS: FAMOTIDINE 20MG TABLET PO SCH (08:55)
[2019-10-17] MEDS: HYDRALAZINE HCL 25MG TABLET PO SCH ×2 (08:55→21:03)
[2019-10-17] MEDS: ZINC SULFATE 220 MG ( 50 ) CAPSULE PO SCH (08:55)
[2019-10-17] MEDS: FLUDROCORTISONE ACETATE 0.1MG TABLET PO SCH (08:56)
[2019-10-17 13:12] LABS: CHLORIDE 99 mEq/L (98-107)
[2019-10-17] MEDS: ATORVASTATIN CALCIUM 40MG TABLET PO SCH (21:02)
[2019-10-17] MEDS: POLYETHYLENE GLYCOL 3350 (17GM) 1 DOSE PACK PO SCH (21:02)
[2019-10-18] VITALS (37 sets, daily range): BP systolic 97–177; BP diastolic 37–119
[2019-10-18] MEDS: BLOOD SUGAR DIAGNOSTIC STRIP TEST SCH ×4 (00:17→18:06)
[2019-10-18] MEDS: INSULIN LISPRO 100 UNITS/ML SUBCUT SCH ×4 (00:17→18:12)
[2019-10-18] MEDS: PIPERACILLIN/TAZOBACTAM 2.25 G in DEXTROSE 5% WATER 50 ML IV SCH ×4 (00:18→18:05)
[2019-10-18] MEDS: IPRATROPIUM/ALBUTEROL 0.5-3(2.5)MG/3ML NEB ORI SCH ×6 (00:50→20:39)
[2019-10-18] MEDS: ACETYLCYSTEINE 100MG/ML 10% VIAL 4ML INH SCH ×2 (00:51→09:10)
[2019-10-18] MEDS: DEXT 5%/LACTATED RINGERS 1,000 ML IV SCH ×2 (05:55→18:05)
[2019-10-18] MEDS: LEVOTHYROXINE SODIUM 112MCG TABLET PO SCH (06:28)
[2019-10-18] MEDS: ZINC SULFATE 220 MG ( 50 ) CAPSULE PO SCH (09:44)
[2019-10-18] MEDS: FAMOTIDINE 20MG TABLET PO SCH (09:44)
[2019-10-18] MEDS: GUAIFENESIN 200MG/10ML SUGAR FREE UDC PO PRN (09:44)
[2019-10-18] MEDS: AMLODIPINE 10MG TABLET PO SCH (09:44)
[2019-10-18] MEDS: DOCUSATE SODIUM SUGAR FREE 100MG/10ML UDC NG SCH ×2 (09:44→18:05)
[2019-10-18] MEDS: HYDRALAZINE HCL 25MG TABLET PO SCH ×2 (09:45→21:20)
[2019-10-18] MEDS: LISINOPRIL 20MG TABLET PO SCH ×2 (09:45→21:14)
[2019-10-18] MEDS: FLUDROCORTISONE ACETATE 0.1MG TABLET PO SCH (09:45)
[2019-10-18] MEDS: METOPROLOL TARTRATE 25MG TABLET PO SCH ×2 (09:45→21:13)
[2019-10-18 18:05] LABS: CHLORIDE 95 mEq/L (98-107)
[2019-10-18] MEDS ORDERED: POTASSIUM CHLORIDE INJ 40 MEQ in DEXT 5% WATER 250 ML IV NR (21:00)
[2019-10-18] MEDS: ATORVASTATIN CALCIUM 40MG TABLET PO SCH (21:12)
[2019-10-18] MEDS: POLYETHYLENE GLYCOL 3350 (17GM) 1 DOSE PACK PO SCH (21:14)
[2019-10-19] VITALS (32 sets, daily range): BP systolic 100–145; BP diastolic 50–83
[2019-10-19] MEDS: BLOOD SUGAR DIAGNOSTIC STRIP TEST SCH ×5 (00:13→23:39)
[2019-10-19] MEDS: INSULIN LISPRO 100 UNITS/ML SUBCUT SCH ×5 (00:17→23:39)
[2019-10-19] MEDS: PIPERACILLIN/TAZOBACTAM 2.25 G in DEXTROSE 5% WATER 50 ML IV SCH ×4 (00:21→23:38)
[2019-10-19] MEDS: IPRATROPIUM/ALBUTEROL 0.5-3(2.5)MG/3ML NEB ORI SCH ×6 (00:52→21:26)
[2019-10-19] MEDS: DEXT 5%/LACTATED RINGERS 1,000 ML IV SCH (02:33)
[2019-10-19] MEDS: LEVOTHYROXINE SODIUM 112MCG TABLET PO SCH (06:21)
[2019-10-19 07:15] LABS: HEMATOCRIT. 29.6 % (36.0-48.0); MEAN CORPUSCULAR HEMOGLOBIN 31.4 pg (28.0-32.0); MEAN CORPUSCULAR VOLUME 93.3 fL (81.0-99.0); MEAN PLATELET VOLUME 8.9 fl (7.4-10.4); PLATELET 329 x1000/uL (130-400); RED BLOOD CELL COUNT 3.17 mill/uL (4.2-5.4); RED CELL DISTRIBUTION WIDTH 14.5 % (11.6-14.6)
[2019-10-19 07:17] LABS: CHLORIDE 94 mEq/L (98-107)
[2019-10-19 07:26] LABS: PHOSPHORUS 2.5 mg/dL (2.5-4.9)
[2019-10-19] MEDS: ZINC SULFATE 220 MG ( 50 ) CAPSULE PO SCH (08:43)
[2019-10-19] MEDS: GUAIFENESIN 200MG/10ML SUGAR FREE UDC PO PRN (08:43)
[2019-10-19] MEDS: DOCUSATE SODIUM SUGAR FREE 100MG/10ML UDC NG SCH ×2 (08:43→17:50)
[2019-10-19] MEDS: FLUDROCORTISONE ACETATE 0.1MG TABLET PO SCH (08:43)
[2019-10-19] MEDS: FAMOTIDINE 20MG TABLET PO SCH (08:43)
[2019-10-19] MEDS: AMLODIPINE 10MG TABLET PO SCH (08:44)
[2019-10-19] MEDS: METOPROLOL TARTRATE 25MG TABLET PO SCH ×2 (08:44→20:36)
[2019-10-19] MEDS: LISINOPRIL 20MG TABLET PO SCH ×2 (08:45→20:36)
[2019-10-19] MEDS: HYDRALAZINE HCL 25MG TABLET PO SCH ×2 (08:59→20:36)
[2019-10-19] MEDS: ACETYLCYSTEINE 100MG/ML 10% VIAL 4ML INH SCH (09:06)
[2019-10-19] MEDS ORDERED: LIDOCAINE HCL 1% 20ML VIAL (Pyxis) INJ ONE (12:52)
[2019-10-19] MEDS: ATORVASTATIN CALCIUM 40MG TABLET PO SCH (20:36)
[2019-10-19] MEDS: POLYETHYLENE GLYCOL 3350 (17GM) 1 DOSE PACK PO SCH (20:36)
[2019-10-19 21:53] LABS: PLATELET ESTIMATE NORMAL
[2019-10-20] VITALS (16 sets, daily range): BP systolic 105–151; BP diastolic 53–78
[2019-10-20] MEDS: IPRATROPIUM/ALBUTEROL 0.5-3(2.5)MG/3ML NEB ORI SCH ×6 (00:55→20:40)
[2019-10-20] MEDS: BLOOD SUGAR DIAGNOSTIC STRIP TEST SCH ×4 (06:00→23:39)
[2019-10-20] MEDS: INSULIN LISPRO 100 UNITS/ML SUBCUT SCH ×4 (06:10→23:43)
[2019-10-20 07:41] LABS: CHLORIDE 93 mEq/L (98-107)
[2019-10-20] MEDS: ZINC SULFATE 220 MG ( 50 ) CAPSULE PO SCH (08:36)
[2019-10-20] MEDS: FLUDROCORTISONE ACETATE 0.1MG TABLET PO SCH (08:36)
[2019-10-20] MEDS: FAMOTIDINE 20MG TABLET PO SCH (08:36)
[2019-10-20] MEDS: LISINOPRIL 20MG TABLET PO SCH ×2 (08:37→20:00)
[2019-10-20] MEDS: METOPROLOL TARTRATE 25MG TABLET PO SCH ×2 (08:37→20:00)
[2019-10-20] MEDS: AMLODIPINE 10MG TABLET PO SCH (08:37)
[2019-10-20] MEDS: HYDRALAZINE HCL 25MG TABLET PO SCH ×2 (08:37→20:01)
[2019-10-20] MEDS: LEVOTHYROXINE SODIUM 112MCG TABLET PO SCH (08:45)
[2019-10-20] MEDS: DOCUSATE SODIUM SUGAR FREE 100MG/10ML UDC NG SCH ×2 (08:45→17:00)
[2019-10-20] MEDS: SODIUM CHLORIDE 0.9% 1,000 ML IV SCH (15:41)
[2019-10-20] MEDS: ACETAMINOPHEN 325MG TABLET PO PRN (19:56)
[2019-10-20] MEDS: ATORVASTATIN CALCIUM 40MG TABLET PO SCH (20:00)
[2019-10-20] MEDS: POLYETHYLENE GLYCOL 3350 (17GM) 1 DOSE PACK PO SCH (20:02)
[2019-10-21] VITALS (10 sets, daily range): BP systolic 132–160; BP diastolic 64–95
[2019-10-21] MEDS: IPRATROPIUM/ALBUTEROL 0.5-3(2.5)MG/3ML NEB ORI SCH ×5 (00:30→21:32)
[2019-10-21] MEDS: SODIUM CHLORIDE 0.9% 1,000 ML IV SCH ×2 (02:27→16:25)
[2019-10-21] MEDS: BLOOD SUGAR DIAGNOSTIC STRIP TEST SCH ×4 (06:00→23:31)
[2019-10-21] MEDS: FAMOTIDINE 20MG TABLET PO SCH (08:18)
[2019-10-21] MEDS: DOCUSATE SODIUM SUGAR FREE 100MG/10ML UDC NG SCH ×2 (08:18→17:00)
[2019-10-21] MEDS: LEVOTHYROXINE SODIUM 112MCG TABLET PO SCH (08:18)
[2019-10-21] MEDS: ZINC SULFATE 220 MG ( 50 ) CAPSULE PO SCH (08:19)
[2019-10-21] MEDS: AMLODIPINE 10MG TABLET PO SCH (08:19)
[2019-10-21] MEDS: LISINOPRIL 20MG TABLET PO SCH ×2 (08:19→21:21)
[2019-10-21] MEDS: FLUDROCORTISONE ACETATE 0.1MG TABLET PO SCH (08:19)
[2019-10-21] MEDS: HYDRALAZINE HCL 25MG TABLET PO SCH ×2 (08:19→21:21)
[2019-10-21] MEDS: METOPROLOL TARTRATE 25MG TABLET PO SCH ×3 (08:20→21:20)
[2019-10-21] MEDS: INSULIN LISPRO 100 UNITS/ML SUBCUT SCH ×3 (13:53→23:31)
[2019-10-21] MEDS: POLYETHYLENE GLYCOL 3350 (17GM) 1 DOSE PACK PO SCH (21:00)
[2019-10-21] MEDS: ATORVASTATIN CALCIUM 40MG TABLET PO SCH (21:20)
[2019-10-22] VITALS (12 sets, daily range): BP systolic 113–155; BP diastolic 60–88
[2019-10-22] MEDS: IPRATROPIUM/ALBUTEROL 0.5-3(2.5)MG/3ML NEB ORI SCH ×7 (00:05→19:50)
[2019-10-22] MEDS: ACETYLCYSTEINE 100MG/ML 10% VIAL 4ML INH SCH ×4 (00:05→22:00)
[2019-10-22] MEDS: METOPROLOL TARTRATE 25MG TABLET PO SCH ×3 (05:23→23:09)
[2019-10-22] MEDS: BLOOD SUGAR DIAGNOSTIC STRIP TEST SCH ×3 (05:23→18:08)
[2019-10-22] MEDS: INSULIN LISPRO 100 UNITS/ML SUBCUT SCH ×3 (05:26→18:16)
[2019-10-22] MEDS: SODIUM CHLORIDE 0.9% 1,000 ML IV SCH ×2 (05:27→19:05)
[2019-10-22] MEDS: ZINC SULFATE 220 MG ( 50 ) CAPSULE PO SCH (08:43)
[2019-10-22] MEDS: ACETAMINOPHEN 325MG TABLET PO PRN ×2 (08:44→18:15)
[2019-10-22] MEDS: LEVOTHYROXINE SODIUM 112MCG TABLET PO SCH (08:44)
[2019-10-22] MEDS: FLUDROCORTISONE ACETATE 0.1MG TABLET PO SCH (08:46)
[2019-10-22] MEDS: FAMOTIDINE 20MG TABLET PO SCH (08:46)
[2019-10-22] MEDS: LISINOPRIL 20MG TABLET PO SCH ×2 (08:46→21:41)
[2019-10-22] MEDS: AMLODIPINE 10MG TABLET PO SCH (08:47)
[2019-10-22] MEDS: HYDRALAZINE HCL 25MG TABLET PO SCH ×2 (08:47→21:41)
[2019-10-22] MEDS: DOCUSATE SODIUM SUGAR FREE 100MG/10ML UDC NG SCH ×2 (08:47→17:00)
[2019-10-22] MEDS: POLYETHYLENE GLYCOL 3350 (17GM) 1 DOSE PACK PO SCH (21:00)
[2019-10-22] MEDS: ATORVASTATIN CALCIUM 40MG TABLET PO SCH (21:41)
[2019-10-23] VITALS (12 sets, daily range): BP systolic 114–151; BP diastolic 60–83
[2019-10-23] MEDS: IPRATROPIUM/ALBUTEROL 0.5-3(2.5)MG/3ML NEB ORI SCH ×6 (00:35→21:04)
[2019-10-23] MEDS: BLOOD SUGAR DIAGNOSTIC STRIP TEST SCH ×4 (00:56→17:51)
[2019-10-23] MEDS: INSULIN LISPRO 100 UNITS/ML SUBCUT SCH ×4 (00:57→17:57)
[2019-10-23] MEDS: METOPROLOL TARTRATE 25MG TABLET PO SCH ×3 (05:18→20:33)
[2019-10-23] MEDS: ACETAMINOPHEN 325MG TABLET PO PRN ×2 (06:52→22:51)
[2019-10-23] MEDS: ZINC SULFATE 220 MG ( 50 ) CAPSULE PO SCH (08:03)
[2019-10-23] MEDS: FAMOTIDINE 20MG TABLET PO SCH (08:03)
[2019-10-23] MEDS: LEVOTHYROXINE SODIUM 112MCG TABLET PO SCH (08:03)
[2019-10-23] MEDS: AMLODIPINE 10MG TABLET PO SCH (08:04)
[2019-10-23] MEDS: HYDRALAZINE HCL 25MG TABLET PO SCH ×2 (08:05→20:34)
[2019-10-23] MEDS: LISINOPRIL 20MG TABLET PO SCH ×2 (08:05→20:34)
[2019-10-23] MEDS: FLUDROCORTISONE ACETATE 0.1MG TABLET PO SCH (08:05)
[2019-10-23] MEDS: DOCUSATE SODIUM SUGAR FREE 100MG/10ML UDC NG SCH ×2 (08:06→17:56)
[2019-10-23] MEDS: SODIUM CHLORIDE 0.9% 1,000 ML IV SCH ×2 (08:06→20:37)
[2019-10-23] MEDS ORDERED: PIPERACILLIN/TAZOBACTAM 3.375 G in DEXT 5% WATER 100 ML IV SCH (08:45)
[2019-10-23 09:37] LABS: BASOPHILS % 1.4 % (0.0-2.0); EOSINOPHILS % 0.9 % (0.0-5.0); HEMATOCRIT. 26.8 % (36.0-48.0); LYMPHOCYTES % 15.6 % (20.0-50.0); MEAN CORPUSCULAR HEMOGLOBIN 31.6 pg (28.0-32.0); MEAN CORPUSCULAR VOLUME 93.8 fL (81.0-99.0); MEAN PLATELET VOLUME 7.6 fl (7.4-10.4); MONOCYTES % 5.1 % (2.0-8.0); PLATELET 419 x1000/uL (130-400); RED BLOOD CELL COUNT 2.85 mill/uL (4.2-5.4); RED CELL DISTRIBUTION WIDTH 14.5 % (11.6-14.6)
[2019-10-23 09:42] LABS: CHLORIDE 106 mEq/L (98-107)
[2019-10-23] MEDS: ACETYLCYSTEINE 100MG/ML 10% VIAL 4ML INH SCH ×2 (09:55→17:50)
[2019-10-23] MEDS: INSULIN GLARGINE UD 100 UNITS/ML SYR SUBCUT SCH (11:47)
[2019-10-23] MEDS: PIPERACILLIN/TAZOBACTAM 2.25 G in DEXTROSE 5% WATER 50 ML IV SCH ×3 (13:07→22:56)
[2019-10-23] MEDS: ATORVASTATIN CALCIUM 40MG TABLET PO SCH (20:33)
[2019-10-23] MEDS: POLYETHYLENE GLYCOL 3350 (17GM) 1 DOSE PACK PO SCH (20:41)
[2019-10-24] VITALS (12 sets, daily range): BP systolic 98–131; BP diastolic 50–75
[2019-10-24] MEDS: INSULIN LISPRO 100 UNITS/ML SUBCUT SCH ×4 (00:14→17:19)
[2019-10-24] MEDS: ACETYLCYSTEINE 100MG/ML 10% VIAL 4ML INH SCH ×2 (00:56→01:15)
[2019-10-24] MEDS: IPRATROPIUM/ALBUTEROL 0.5-3(2.5)MG/3ML NEB ORI SCH ×6 (00:59→20:30)
[2019-10-24] MEDS: PIPERACILLIN/TAZOBACTAM 2.25 G in DEXTROSE 5% WATER 50 ML IV SCH ×4 (05:34→21:28)
[2019-10-24] MEDS: BLOOD SUGAR DIAGNOSTIC STRIP TEST SCH ×5 (06:00→23:42)
[2019-10-24] MEDS: METOPROLOL TARTRATE 25MG TABLET PO SCH ×3 (06:37→21:27)
[2019-10-24] MEDS: LEVOTHYROXINE SODIUM 112MCG TABLET PO SCH (06:40)
[2019-10-24 07:17] LABS: BASOPHILS % 0.4 % (0.0-2.0); EOSINOPHILS % 2.4 % (0.0-5.0); HEMATOCRIT. 26.9 % (36.0-48.0); HEMOGLOBIN. 9.1 g/dL (12.0-16.0); LYMPHOCYTES % 14.8 % (20.0-50.0); MEAN CORPUSCULAR HEMOGLOBIN 31.5 pg (28.0-32.0); MEAN CORPUSCULAR VOLUME 93.3 fL (81.0-99.0); MEAN PLATELET VOLUME 7.6 fl (7.4-10.4); NEUTROPHILS % 77.4 % (40.0-76.0); PLATELET 431 x1000/uL (130-400); RED BLOOD CELL COUNT 2.88 mill/uL (4.2-5.4)
[2019-10-24 07:32] LABS: CHLORIDE 107 mEq/L (98-107)
[2019-10-24 07:57] LABS: PHOSPHORUS 3.9 mg/dL (2.5-4.9)
[2019-10-24 08:00] LABS: T4 FREE 1.23 ng/dL (0.76-1.46)
[2019-10-24] MEDS: DOCUSATE SODIUM SUGAR FREE 100MG/10ML UDC NG SCH ×2 (09:50→16:23)
[2019-10-24] MEDS: AMLODIPINE 10MG TABLET PO SCH (09:51)
[2019-10-24] MEDS: HYDRALAZINE HCL 25MG TABLET PO SCH ×2 (09:51→21:27)
[2019-10-24] MEDS: FLUDROCORTISONE ACETATE 0.1MG TABLET PO SCH (09:51)
[2019-10-24] MEDS: FAMOTIDINE 20MG TABLET PO SCH (09:51)
[2019-10-24] MEDS: ZINC SULFATE 220 MG ( 50 ) CAPSULE PO SCH (09:51)
[2019-10-24] MEDS: LISINOPRIL 20MG TABLET PO SCH ×2 (09:51→21:27)
[2019-10-24] MEDS: INSULIN GLARGINE UD 100 UNITS/ML SYR SUBCUT SCH (09:52)
[2019-10-24] MEDS: POLYETHYLENE GLYCOL 3350 (17GM) 1 DOSE PACK PO SCH (21:27)
[2019-10-24] MEDS: ATORVASTATIN CALCIUM 40MG TABLET PO SCH (21:27)
[2019-10-25] VITALS (12 sets, daily range): BP systolic 118–166; BP diastolic 64–81
[2019-10-25] MEDS: IPRATROPIUM/ALBUTEROL 0.5-3(2.5)MG/3ML NEB ORI SCH ×6 (00:04→20:20)
[2019-10-25] MEDS: ACETYLCYSTEINE 100MG/ML 10% VIAL 4ML INH SCH ×4 (00:05→15:42)
[2019-10-25] MEDS: INSULIN LISPRO 100 UNITS/ML SUBCUT SCH ×5 (00:31→23:29)
[2019-10-25] MEDS: PIPERACILLIN/TAZOBACTAM 2.25 G in DEXTROSE 5% WATER 50 ML IV SCH ×4 (04:57→23:27)
[2019-10-25] MEDS: METOPROLOL TARTRATE 25MG TABLET PO SCH ×3 (05:19→20:55)
[2019-10-25] MEDS: BLOOD SUGAR DIAGNOSTIC STRIP TEST SCH ×4 (06:00→23:27)
[2019-10-25] MEDS: LEVOTHYROXINE SODIUM 112MCG TABLET PO SCH (06:13)
[2019-10-25] MEDS: LISINOPRIL 20MG TABLET PO SCH ×2 (09:00→20:55)
[2019-10-25] MEDS: FLUDROCORTISONE ACETATE 0.1MG TABLET PO SCH (09:00)
[2019-10-25] MEDS: FAMOTIDINE 20MG TABLET PO SCH (09:00)
[2019-10-25] MEDS: HYDRALAZINE HCL 25MG TABLET PO SCH ×2 (09:00→20:55)
[2019-10-25] MEDS: ZINC SULFATE 220 MG ( 50 ) CAPSULE PO SCH (09:00)
[2019-10-25] MEDS: DOCUSATE SODIUM SUGAR FREE 100MG/10ML UDC NG SCH ×2 (09:00→17:37)
[2019-10-25] MEDS: AMLODIPINE 10MG TABLET PO SCH (09:00)
[2019-10-25] MEDS: INSULIN GLARGINE UD 100 UNITS/ML SYR SUBCUT SCH (10:18)
[2019-10-25] MEDS: ATORVASTATIN CALCIUM 40MG TABLET PO SCH (20:54)
[2019-10-25] MEDS: POLYETHYLENE GLYCOL 3350 (17GM) 1 DOSE PACK PO SCH (20:55)
[2019-10-26] VITALS (13 sets, daily range): BP systolic 112–145; BP diastolic 47–79
[2019-10-26] MEDS: IPRATROPIUM/ALBUTEROL 0.5-3(2.5)MG/3ML NEB ORI SCH ×4 (00:29→15:58)
[2019-10-26] MEDS: METOPROLOL TARTRATE 25MG TABLET PO SCH ×3 (05:09→21:19)
[2019-10-26] MEDS: PIPERACILLIN/TAZOBACTAM 2.25 G in DEXTROSE 5% WATER 50 ML IV SCH ×4 (05:09→22:32)
[2019-10-26] MEDS: BLOOD SUGAR DIAGNOSTIC STRIP TEST SCH ×3 (05:10→18:00)
[2019-10-26] MEDS: INSULIN LISPRO 100 UNITS/ML SUBCUT SCH ×3 (05:15→18:00)
[2019-10-26 06:26] LABS: EOSINOPHILS % 4.4 % (0.0-5.0); HEMATOCRIT. 26.8 % (36.0-48.0); HEMOGLOBIN. 9.2 g/dL (12.0-16.0); LYMPHOCYTES % 18.1 % (20.0-50.0); MEAN CORPUSCULAR HEMOGLOBIN 31.8 pg (28.0-32.0); MEAN CORPUSCULAR VOLUME 92.9 fL (81.0-99.0); MEAN PLATELET VOLUME 7.7 fl (7.4-10.4); MONOCYTES % 5.2 % (2.0-8.0); NEUTROPHILS % 71.3 % (40.0-76.0); PLATELET 528 x1000/uL (130-400); RED BLOOD CELL COUNT 2.89 mill/uL (4.2-5.4); RED CELL DISTRIBUTION WIDTH 14.2 % (11.6-14.6)
[2019-10-26 06:35] LABS: PARTIAL THROMBOPLASTIN TIME 23.9 sec (23.4-31.0); PROTHROMBIN TIME 10.7 sec (9.6-11.0)
[2019-10-26 07:05] LABS: CHLORIDE 104 mEq/L (98-107)
[2019-10-26] MEDS: ACETYLCYSTEINE 100MG/ML 10% VIAL 4ML INH SCH ×3 (08:16→15:58)
[2019-10-26] MEDS ORDERED: POTASSIUM CHLORIDE 20MEQ TABLET SR PO SCH (08:30)
[2019-10-26] MEDS: LISINOPRIL 20MG TABLET PO SCH ×2 (08:54→21:18)
[2019-10-26] MEDS: ZINC SULFATE 220 MG ( 50 ) CAPSULE PO SCH (08:54)
[2019-10-26] MEDS: FAMOTIDINE 20MG TABLET PO SCH (08:55)
[2019-10-26] MEDS: LEVOTHYROXINE SODIUM 112MCG TABLET PO SCH (08:55)
[2019-10-26] MEDS: AMLODIPINE 10MG TABLET PO SCH (08:56)
[2019-10-26] MEDS: FLUDROCORTISONE ACETATE 0.1MG TABLET PO SCH (08:56)
[2019-10-26] MEDS: HYDRALAZINE HCL 25MG TABLET PO SCH ×2 (08:57→21:18)
[2019-10-26] MEDS: DOCUSATE SODIUM SUGAR FREE 100MG/10ML UDC NG SCH ×2 (08:58→17:00)
[2019-10-26] MEDS: INSULIN GLARGINE UD 100 UNITS/ML SYR SUBCUT SCH (10:59)
[2019-10-26] MEDS ORDERED: MIDAZOLAM HCL 5 MG/5 ML VIAL ONE (11:43)
[2019-10-26] MEDS ORDERED: FENTANYL CITRATE/PF 50MCG/ML 2ML VIAL ONE (11:43)
[2019-10-26] MEDS ORDERED: MIDAZOLAM HCL 5 MG/5 ML VIAL IV PRN (12:01)
[2019-10-26] MEDS ORDERED: FENTANYL CITRATE/PF 50MCG/ML 2ML VIAL IV PRN (12:10)
[2019-10-26] MEDS: METOCLOPRAMIDE HCL 10MG/2ML VIAL IV SCH ×3 (12:30→21:18)
[2019-10-26 16:05] LABS: BG BASE EXCESS 7.9 mmol/L (-2.0-2.0); BG CARBOXYHEMOGLOBIN 0.3 % (0.5-1.5); BG DEOXYHEMOGLOBIN 7.3 % (0.0-5.0); BG FRACTION INSPIRED OXYGEN 21; BG HCO3 ACT 33.1 mmol/L (22.0-26.0); BG METHEMOGLOBIN 0.2 % (0.0-1.5); BG OXYGEN SATURATION 92.7 % (92.0-98.5); BG OXYHEMOGLOBIN 92.2 % (94.0-97.0); BG PCO2 50.3 mmHg (35.0-45.0); BG PH 7.436 (7.350-7.450); BG PO2 68.1 mmHg (75.0-100.0); BG SAMPLE SITE RIGHT BRACHIAL; BG TOTAL HEMOGLOBIN 9.5 g/dL (12.0-18.0); BG VENT MODE ROOM AIR
[2019-10-26] MEDS: POLYETHYLENE GLYCOL 3350 (17GM) 1 DOSE PACK PO SCH (21:00)
[2019-10-26] MEDS: ATORVASTATIN CALCIUM 40MG TABLET PO SCH (21:19)
[2019-10-27] VITALS (13 sets, daily range): BP systolic 108–153; BP diastolic 50–84
[2019-10-27] MEDS: IPRATROPIUM/ALBUTEROL 0.5-3(2.5)MG/3ML NEB ORI SCH ×6 (04:05→20:10)
[2019-10-27] MEDS: PIPERACILLIN/TAZOBACTAM 2.25 G in DEXTROSE 5% WATER 50 ML IV SCH ×4 (05:13→22:17)
[2019-10-27] MEDS: METOPROLOL TARTRATE 25MG TABLET PO SCH ×3 (05:14→22:18)
[2019-10-27] MEDS: BLOOD SUGAR DIAGNOSTIC STRIP TEST SCH ×4 (05:15→18:51)
[2019-10-27] MEDS: INSULIN LISPRO 100 UNITS/ML SUBCUT SCH ×4 (05:16→17:55)
[2019-10-27] MEDS: LEVOTHYROXINE SODIUM 112MCG TABLET PO SCH (08:38)
[2019-10-27] MEDS: LISINOPRIL 20MG TABLET PO SCH ×2 (08:39→21:15)
[2019-10-27] MEDS: ZINC SULFATE 220 MG ( 50 ) CAPSULE PO SCH (08:39)
[2019-10-27] MEDS: FAMOTIDINE 20MG TABLET PO SCH (08:39)
[2019-10-27] MEDS: PANTOPRAZOLE SODIUM 40 MG/VIAL IV SCH (08:40)
[2019-10-27] MEDS: METOCLOPRAMIDE HCL 10MG/2ML VIAL IV SCH ×4 (08:41→21:14)
[2019-10-27] MEDS: AMLODIPINE 10MG TABLET PO SCH (08:41)
[2019-10-27] MEDS: HYDRALAZINE HCL 25MG TABLET PO SCH ×2 (08:41→21:15)
[2019-10-27] MEDS: INSULIN GLARGINE UD 100 UNITS/ML SYR SUBCUT SCH (09:51)
[2019-10-27] MEDS: DOCUSATE SODIUM SUGAR FREE 100MG/10ML UDC NG SCH ×2 (09:52→17:00)
[2019-10-27] MEDS: FLUDROCORTISONE ACETATE 0.1MG TABLET PO SCH (09:52)
[2019-10-27 13:03] LABS: BG BASE EXCESS 6.9 mmol/L (-2.0-2.0); BG CARBOXYHEMOGLOBIN 0.3 % (0.5-1.5); BG DEOXYHEMOGLOBIN 5.4 % (0.0-5.0); BG FRACTION INSPIRED OXYGEN 21; BG HCO3 ACT 31.9 mmol/L (22.0-26.0); BG METHEMOGLOBIN 0.3 % (0.0-1.5); BG OXYGEN SATURATION 94.6 % (92.0-98.5); BG PCO2 48.1 mmHg (35.0-45.0); BG PH 7.439 (7.350-7.450); BG PO2 73.1 mmHg (75.0-100.0); BG SAMPLE SITE RIGHT RADIAL; BG TOTAL HEMOGLOBIN 8.8 g/dL (12.0-18.0); BG VENT MODE ROOM AIR
[2019-10-27] MEDS: POLYETHYLENE GLYCOL 3350 (17GM) 1 DOSE PACK PO SCH (21:00)
[2019-10-27] MEDS: ATORVASTATIN CALCIUM 40MG TABLET PO SCH (21:14)
[2019-10-28] VITALS (12 sets, daily range): BP systolic 100–145; BP diastolic 57–77
[2019-10-28] MEDS: IPRATROPIUM/ALBUTEROL 0.5-3(2.5)MG/3ML NEB ORI SCH ×6 (00:05→20:35)
[2019-10-28] MEDS: BLOOD SUGAR DIAGNOSTIC STRIP TEST SCH ×4 (00:27→18:44)
[2019-10-28] MEDS: INSULIN LISPRO 100 UNITS/ML SUBCUT SCH ×5 (00:30→23:42)
[2019-10-28] MEDS: PIPERACILLIN/TAZOBACTAM 2.25 G in DEXTROSE 5% WATER 50 ML IV SCH ×4 (05:04→22:40)
[2019-10-28] MEDS: METOPROLOL TARTRATE 25MG TABLET PO SCH ×3 (06:51→21:01)
[2019-10-28] MEDS: LEVOTHYROXINE SODIUM 112MCG TABLET PO SCH (06:51)
[2019-10-28] MEDS: METOCLOPRAMIDE HCL 10MG/2ML VIAL IV SCH (06:51)
[2019-10-28] MEDS: PANTOPRAZOLE SODIUM 40 MG/VIAL IV SCH (08:07)
[2019-10-28] MEDS: FLUDROCORTISONE ACETATE 0.1MG TABLET PO SCH (08:07)
[2019-10-28] MEDS: LISINOPRIL 20MG TABLET PO SCH ×2 (08:07→20:25)
[2019-10-28] MEDS: ZINC SULFATE 220 MG ( 50 ) CAPSULE PO SCH (08:07)
[2019-10-28] MEDS: DOCUSATE SODIUM SUGAR FREE 100MG/10ML UDC NG SCH ×2 (08:07→16:18)
[2019-10-28] MEDS: HYDRALAZINE HCL 25MG TABLET PO SCH ×2 (08:08→20:25)
[2019-10-28] MEDS: AMLODIPINE 10MG TABLET PO SCH (08:08)
[2019-10-28] MEDS: FAMOTIDINE 20MG TABLET PO SCH (08:11)
[2019-10-28] MEDS: ACETAMINOPHEN 325MG TABLET PO PRN ×2 (08:15→16:19)
[2019-10-28] MEDS: INSULIN GLARGINE UD 100 UNITS/ML SYR SUBCUT SCH (10:25)
[2019-10-28] MEDS: ATORVASTATIN CALCIUM 40MG TABLET PO SCH (20:24)
[2019-10-28] MEDS: POLYETHYLENE GLYCOL 3350 (17GM) 1 DOSE PACK PO SCH (20:25)
[2019-10-29] VITALS (12 sets, daily range): BP systolic 105–158; BP diastolic 27–78
[2019-10-29] MEDS: IPRATROPIUM/ALBUTEROL 0.5-3(2.5)MG/3ML NEB ORI SCH ×6 (00:19→20:16)
[2019-10-29] MEDS: BLOOD SUGAR DIAGNOSTIC STRIP TEST SCH ×4 (05:21→18:24)
[2019-10-29] MEDS: LEVOTHYROXINE SODIUM 112MCG TABLET PO SCH (05:55)
[2019-10-29] MEDS: METOPROLOL TARTRATE 25MG TABLET PO SCH ×3 (05:55→21:39)
[2019-10-29] MEDS: INSULIN LISPRO 100 UNITS/ML SUBCUT SCH ×3 (05:56→18:28)
[2019-10-29] MEDS: DOCUSATE SODIUM SUGAR FREE 100MG/10ML UDC NG SCH ×2 (08:46→17:00)
[2019-10-29] MEDS: AMLODIPINE 10MG TABLET PO SCH (08:46)
[2019-10-29] MEDS: HYDRALAZINE HCL 25MG TABLET PO SCH ×2 (08:47→21:00)
[2019-10-29] MEDS: FAMOTIDINE 20MG TABLET PO SCH (08:47)
[2019-10-29] MEDS: ZINC SULFATE 220 MG ( 50 ) CAPSULE PO SCH (08:47)
[2019-10-29] MEDS: FLUDROCORTISONE ACETATE 0.1MG TABLET PO SCH (08:48)
[2019-10-29] MEDS: LISINOPRIL 20MG TABLET PO SCH ×2 (08:48→21:00)
[2019-10-29] MEDS: INSULIN GLARGINE UD 100 UNITS/ML SYR SUBCUT SCH (10:12)
[2019-10-29] MEDS: POLYETHYLENE GLYCOL 3350 (17GM) 1 DOSE PACK PO SCH (21:00)
[2019-10-29] MEDS: ATORVASTATIN CALCIUM 40MG TABLET PO SCH (21:37)
[2019-10-30] VITALS (11 sets, daily range): BP systolic 96–157; BP diastolic 54–83
[2019-10-30] MEDS: BLOOD SUGAR DIAGNOSTIC STRIP TEST SCH ×4 (00:18→17:44)
[2019-10-30] MEDS: INSULIN LISPRO 100 UNITS/ML SUBCUT SCH ×4 (00:18→18:28)
[2019-10-30] MEDS: IPRATROPIUM/ALBUTEROL 0.5-3(2.5)MG/3ML NEB ORI SCH ×6 (01:00→20:19)
[2019-10-30] MEDS: METOPROLOL TARTRATE 25MG TABLET PO SCH ×3 (05:47→22:00)
[2019-10-30] MEDS: LEVOTHYROXINE SODIUM 112MCG TABLET PO SCH (08:43)
[2019-10-30] MEDS: ZINC SULFATE 220 MG ( 50 ) CAPSULE PO SCH (08:44)
[2019-10-30] MEDS: LISINOPRIL 20MG TABLET PO SCH ×2 (08:44→21:00)
[2019-10-30] MEDS: HYDRALAZINE HCL 25MG TABLET PO SCH ×2 (08:44→21:00)
[2019-10-30] MEDS: FAMOTIDINE 20MG TABLET PO SCH (08:44)
[2019-10-30] MEDS: DOCUSATE SODIUM SUGAR FREE 100MG/10ML UDC NG SCH ×2 (08:44→18:28)
[2019-10-30] MEDS: FLUDROCORTISONE ACETATE 0.1MG TABLET PO SCH (08:45)
[2019-10-30] MEDS: AMLODIPINE 10MG TABLET PO SCH (08:45)
[2019-10-30] MEDS: INSULIN GLARGINE UD 100 UNITS/ML SYR SUBCUT SCH (10:23)
[2019-10-30] MEDS: ATORVASTATIN CALCIUM 40MG TABLET PO SCH (21:00)
[2019-10-30] MEDS: POLYETHYLENE GLYCOL 3350 (17GM) 1 DOSE PACK PO SCH (21:00)
[2019-10-30] MEDS ORDERED: LEVOFLOXACIN 250MG PREMIX 50 ML IV SCH (22:00)
[2019-10-30] MEDS ORDERED: LEVOFLOXACIN 500MG PREMIX 100 ML IV SCH (23:00)
[2019-10-31] VITALS (12 sets, daily range): BP systolic 96–205; BP diastolic 60–91
[2019-10-31] MEDS ORDERED: METRONIDAZOLE 250 MG PREMIX 50 ML IV SCH
[2019-10-31] MEDS: METRONIDAZOLE 250MG/50ML in BAG IV SCH ×2 (00:12→12:48)
[2019-10-31] MEDS: BLOOD SUGAR DIAGNOSTIC STRIP TEST SCH ×4 (00:13→17:05)
[2019-10-31] MEDS: IPRATROPIUM/ALBUTEROL 0.5-3(2.5)MG/3ML NEB ORI SCH ×6 (00:18→20:24)
[2019-10-31] MEDS: INSULIN LISPRO 100 UNITS/ML SUBCUT SCH ×4 (00:55→17:05)
[2019-10-31] MEDS: METOPROLOL TARTRATE 25MG TABLET PO SCH ×3 (00:57→21:14)
[2019-10-31 06:01] LABS: BASOPHILS % 0.6 % (0.0-2.0); EOSINOPHILS % 1.5 % (0.0-5.0); HEMOGLOBIN. 8.2 g/dL (12.0-16.0); LYMPHOCYTES % 17.3 % (20.0-50.0); MEAN CORPUSCULAR HEMOGLOBIN 31.6 pg (28.0-32.0); MEAN CORPUSCULAR VOLUME 92.4 fL (81.0-99.0); MEAN PLATELET VOLUME 7.5 fl (7.4-10.4); MONOCYTES % 7.3 % (2.0-8.0); NEUTROPHILS % 73.3 % (40.0-76.0); PLATELET 526 x1000/uL (130-400); RED CELL DISTRIBUTION WIDTH 14.6 % (11.6-14.6)
[2019-10-31 06:03] LABS: CHLORIDE 107 mEq/L (98-107)
[2019-10-31] MEDS: LEVOTHYROXINE SODIUM 112MCG TABLET PO SCH (07:30)
[2019-10-31] MEDS: DOCUSATE SODIUM SUGAR FREE 100MG/10ML UDC NG SCH ×2 (09:00→17:00)
[2019-10-31] MEDS: ZINC SULFATE 220 MG ( 50 ) CAPSULE PO SCH (09:00)
[2019-10-31] MEDS: FLUDROCORTISONE ACETATE 0.1MG TABLET PO SCH (09:00)
[2019-10-31] MEDS: FAMOTIDINE 20MG TABLET PO SCH (09:00)
[2019-10-31] MEDS: HYDRALAZINE HCL 25MG TABLET PO SCH ×2 (09:00→21:00)
[2019-10-31] MEDS: AMLODIPINE 10MG TABLET PO SCH (09:00)
[2019-10-31] MEDS: LISINOPRIL 20MG TABLET PO SCH ×2 (09:00→21:00)
[2019-10-31] MEDS: INSULIN GLARGINE UD 100 UNITS/ML SYR SUBCUT SCH (10:00)
[2019-10-31] MEDS: SODIUM CHLORIDE 0.45% 1,000 ML IV SCH (12:48)
[2019-10-31] MEDS: POLYETHYLENE GLYCOL 3350 (17GM) 1 DOSE PACK PO SCH (21:00)
[2019-10-31] MEDS: ATORVASTATIN CALCIUM 40MG TABLET PO SCH (21:00)
[2019-10-31] MEDS: LEVOFLOXACIN 250MG PREMIX 50 ML IV SCH (22:50)
[2019-11-01] VITALS (12 sets, daily range): BP systolic 119–155; BP diastolic 65–89
[2019-11-01] MEDS: METRONIDAZOLE 250MG/50ML in BAG IV SCH ×2 (00:15→11:41)
[2019-11-01] MEDS: BLOOD SUGAR DIAGNOSTIC STRIP TEST SCH ×4 (00:15→21:23)
[2019-11-01] MEDS: IPRATROPIUM/ALBUTEROL 0.5-3(2.5)MG/3ML NEB ORI SCH ×3 (00:19→08:40)
[2019-11-01] MEDS: SODIUM CHLORIDE 0.45% 1,000 ML IV SCH ×2 (01:58→15:42)
[2019-11-01] MEDS: INSULIN LISPRO 100 UNITS/ML SUBCUT SCH ×4 (05:40→21:25)
[2019-11-01] MEDS: METOPROLOL TARTRATE 25MG TABLET PO SCH ×3 (05:40→22:09)
[2019-11-01] MEDS: LEVOTHYROXINE SODIUM 112MCG TABLET PO SCH (07:30)
[2019-11-01] MEDS: HYDRALAZINE HCL 25MG TABLET PO SCH ×2 (09:00→21:00)
[2019-11-01] MEDS: LISINOPRIL 20MG TABLET PO SCH (09:00)
[2019-11-01] MEDS: FAMOTIDINE 20MG TABLET PO SCH (09:00)
[2019-11-01] MEDS: AMLODIPINE 10MG TABLET PO SCH (09:00)
[2019-11-01] MEDS: ZINC SULFATE 220 MG ( 50 ) CAPSULE PO SCH (09:00)
[2019-11-01] MEDS: FLUDROCORTISONE ACETATE 0.1MG TABLET PO SCH (09:00)
[2019-11-01] MEDS: DOCUSATE SODIUM SUGAR FREE 100MG/10ML UDC NG SCH ×2 (09:00→17:00)
[2019-11-01] MEDS ORDERED: CEFAZOLIN 1000MG PREMIX 50 ML IV SCH (10:00)
[2019-11-01] MEDS: INSULIN GLARGINE UD 100 UNITS/ML SYR SUBCUT SCH (10:00)
[2019-11-01] MEDS ORDERED: MIDAZOLAM HCL 5 MG/5 ML VIAL ONE (12:40)
[2019-11-01] MEDS ORDERED: FENTANYL CITRATE/PF 50MCG/ML 2ML VIAL ONE (12:40)
[2019-11-01] MEDS ORDERED: MIDAZOLAM HCL 5 MG/5 ML VIAL IV PRN (12:45)
[2019-11-01] MEDS ORDERED: FENTANYL CITRATE/PF 50MCG/ML 2ML VIAL IV PRN (12:47)
[2019-11-01] MEDS: METOCLOPRAMIDE HCL 10MG/2ML VIAL IV SCH (17:45)
[2019-11-01] MEDS ORDERED: DEXTROSE 50% WATER 50ML SYRINGE IV PRN (18:30)
[2019-11-01] MEDS: POLYETHYLENE GLYCOL 3350 (17GM) 1 DOSE PACK PO SCH (21:00)
[2019-11-01] MEDS: ATORVASTATIN CALCIUM 40MG TABLET PO SCH (21:00)
[2019-11-01] MEDS: LEVOFLOXACIN 250MG PREMIX 50 ML IV SCH (23:09)
[2019-11-02] VITALS (12 sets, daily range): BP systolic 100–141; BP diastolic 52–76
[2019-11-02] MEDS: METOCLOPRAMIDE HCL 10MG/2ML VIAL IV SCH ×4 (00:22→17:05)
[2019-11-02] MEDS: METRONIDAZOLE 250MG/50ML in BAG IV SCH ×2 (00:22→11:54)
[2019-11-02] MEDS: METOPROLOL TARTRATE 25MG TABLET PO SCH ×3 (06:08→21:14)
[2019-11-02] MEDS: SODIUM CHLORIDE 0.45% 1,000 ML IV SCH ×2 (06:08→16:43)
[2019-11-02 07:05] LABS: BASOPHILS % 0.3 % (0.0-2.0); EOSINOPHILS % 0.3 % (0.0-5.0); HEMATOCRIT. 25.8 % (36.0-48.0); HEMOGLOBIN. 8.8 g/dL (12.0-16.0); MEAN CORPUSCULAR HEMOGLOBIN 31.3 pg (28.0-32.0); MEAN CORPUSCULAR VOLUME 92.2 fL (81.0-99.0); MONOCYTES % 4.5 % (2.0-8.0); NEUTROPHILS % 84.9 % (40.0-76.0); PLATELET 445 x1000/uL (130-400); RED CELL DISTRIBUTION WIDTH 14.5 % (11.6-14.6)
[2019-11-02 07:13] LABS: CHLORIDE 104 mEq/L (98-107)
[2019-11-02] MEDS: BLOOD SUGAR DIAGNOSTIC STRIP TEST SCH ×4 (07:30→21:15)
[2019-11-02] MEDS: FLUDROCORTISONE ACETATE 0.1MG TABLET PO SCH (08:49)
[2019-11-02] MEDS: DOCUSATE SODIUM SUGAR FREE 100MG/10ML UDC NG SCH ×3 (08:49→16:37)
[2019-11-02] MEDS: AMLODIPINE 10MG TABLET PO SCH (08:51)
[2019-11-02] MEDS: HYDRALAZINE HCL 25MG TABLET PO SCH ×2 (08:51→21:13)
[2019-11-02] MEDS: INSULIN LISPRO 100 UNITS/ML SUBCUT SCH ×4 (08:54→21:16)
[2019-11-02] MEDS: IPRATROPIUM/ALBUTEROL 0.5-3(2.5)MG/3ML NEB ORI SCH ×2 (09:35→20:34)
[2019-11-02] MEDS: INSULIN GLARGINE UD 100 UNITS/ML SYR SUBCUT SCH (11:55)
[2019-11-02] MEDS: POLYETHYLENE GLYCOL 3350 (17GM) 1 DOSE PACK PO SCH ×2 (21:00→21:16)
[2019-11-02] MEDS: LEVOFLOXACIN 250MG PREMIX 50 ML IV SCH (22:52)
[2019-11-03] VITALS (12 sets, daily range): BP systolic 100–148; BP diastolic 61–81
[2019-11-03] MEDS: METOCLOPRAMIDE HCL 10MG/2ML VIAL IV SCH ×5 (00:04→23:00)
[2019-11-03] MEDS: METRONIDAZOLE 250MG/50ML in BAG IV SCH ×3 (00:05→23:01)
[2019-11-03] MEDS: IPRATROPIUM/ALBUTEROL 0.5-3(2.5)MG/3ML NEB ORI SCH ×2 (04:31→04:33)
[2019-11-03] MEDS: METOPROLOL TARTRATE 25MG TABLET PO SCH ×3 (05:40→21:04)
[2019-11-03] MEDS: SODIUM CHLORIDE 0.45% 1,000 ML IV SCH ×2 (06:25→22:55)
[2019-11-03 06:45] LABS: BASOPHILS % 0.5 % (0.0-2.0); EOSINOPHILS % 0.7 % (0.0-5.0); HEMATOCRIT. 26.4 % (36.0-48.0); HEMOGLOBIN. 8.7 g/dL (12.0-16.0); LYMPHOCYTES % 14.6 % (20.0-50.0); MEAN CORPUSCULAR HEMOGLOBIN 30.4 pg (28.0-32.0); MEAN CORPUSCULAR VOLUME 91.8 fL (81.0-99.0); MONOCYTES % 5.2 % (2.0-8.0); PLATELET 278 x1000/uL (130-400); RED BLOOD CELL COUNT 2.88 mill/uL (4.2-5.4); RED CELL DISTRIBUTION WIDTH 14.9 % (11.6-14.6)
[2019-11-03] MEDS: AMLODIPINE 10MG TABLET PO SCH (08:12)
[2019-11-03] MEDS: FLUDROCORTISONE ACETATE 0.1MG TABLET PO SCH (08:12)
[2019-11-03] MEDS: DOCUSATE SODIUM SUGAR FREE 100MG/10ML UDC NG SCH ×2 (08:12→17:03)
[2019-11-03] MEDS: HYDRALAZINE HCL 25MG TABLET PO SCH ×2 (08:12→21:00)
[2019-11-03] MEDS: BLOOD SUGAR DIAGNOSTIC STRIP TEST SCH ×4 (08:13→21:00)
[2019-11-03] MEDS: INSULIN LISPRO 100 UNITS/ML SUBCUT SCH ×4 (08:14→21:11)
[2019-11-03] MEDS: INSULIN GLARGINE UD 100 UNITS/ML SYR SUBCUT SCH (12:07)
[2019-11-03] MEDS: ACETAMINOPHEN 650MG/20.3ML UDC PO PRN (14:20)
[2019-11-03] MEDS: POLYETHYLENE GLYCOL 3350 (17GM) 1 DOSE PACK PO SCH (21:02)
[2019-11-03] MEDS: LEVOFLOXACIN 250MG PREMIX 50 ML IV SCH (22:55)
[2019-11-04] VITALS (11 sets, daily range): BP systolic 116–164; BP diastolic 39–85
[2019-11-04] MEDS: ACETAMINOPHEN 650MG/20.3ML UDC PO PRN ×3 (03:57→13:58)
[2019-11-04] MEDS: METOPROLOL TARTRATE 25MG TABLET PO SCH ×3 (05:20→21:21)
[2019-11-04] MEDS: METOCLOPRAMIDE HCL 10MG/2ML VIAL IV SCH ×2 (05:20→12:57)
[2019-11-04] MEDS: BLOOD SUGAR DIAGNOSTIC STRIP TEST SCH ×4 (08:11→21:21)
[2019-11-04] MEDS: INSULIN LISPRO 100 UNITS/ML SUBCUT SCH ×4 (08:27→21:00)
[2019-11-04] MEDS: AMLODIPINE 10MG TABLET PO SCH (08:29)
[2019-11-04] MEDS: HYDRALAZINE HCL 25MG TABLET PO SCH ×2 (08:29→21:20)
[2019-11-04] MEDS: DOCUSATE SODIUM SUGAR FREE 100MG/10ML UDC NG SCH ×2 (08:30→16:35)
[2019-11-04] MEDS: SODIUM CHLORIDE 0.45% 1,000 ML IV SCH ×2 (08:30→22:25)
[2019-11-04] MEDS: FLUDROCORTISONE ACETATE 0.1MG TABLET PO SCH (08:30)
[2019-11-04] MEDS: INSULIN GLARGINE UD 100 UNITS/ML SYR SUBCUT SCH (10:46)
[2019-11-04] MEDS: METRONIDAZOLE 250MG/50ML in BAG IV SCH (12:57)
[2019-11-04] MEDS: POLYETHYLENE GLYCOL 3350 (17GM) 1 DOSE PACK PO SCH (21:20)
[2019-11-04] MEDS: LEVOFLOXACIN 250MG PREMIX 50 ML IV SCH (21:22)
[2019-11-05] VITALS (12 sets, daily range): BP systolic 104–159; BP diastolic 64–92
[2019-11-05] MEDS: METRONIDAZOLE 250MG/50ML in BAG IV SCH ×2 (00:18→14:40)
[2019-11-05] MEDS: BLOOD SUGAR DIAGNOSTIC STRIP TEST SCH ×4 (06:13→21:19)
[2019-11-05] MEDS: INSULIN LISPRO 100 UNITS/ML SUBCUT SCH ×4 (06:16→22:06)
[2019-11-05 06:22] LABS: HEMATOCRIT. 24.8 % (36.0-48.0); HEMOGLOBIN. 8.6 g/dL (12.0-16.0); MEAN CORPUSCULAR HEMOGLOBIN 31.3 pg (28.0-32.0); MEAN CORPUSCULAR VOLUME 90.4 fL (81.0-99.0); MEAN PLATELET VOLUME 9.5 fl (7.4-10.4); PLATELET 338 x1000/uL (130-400); RED BLOOD CELL COUNT 2.75 mill/uL (4.2-5.4); RED CELL DISTRIBUTION WIDTH 14.5 % (11.6-14.6)
[2019-11-05] MEDS: METOPROLOL TARTRATE 25MG TABLET PO SCH ×3 (06:22→21:18)
[2019-11-05 06:33] LABS: CHLORIDE 98 mEq/L (98-107)
[2019-11-05] MEDS: DOCUSATE SODIUM SUGAR FREE 100MG/10ML UDC NG SCH ×3 (09:00→16:42)
[2019-11-05] MEDS: IPRATROPIUM/ALBUTEROL 0.5-3(2.5)MG/3ML NEB ORI SCH ×3 (09:05→16:40)
[2019-11-05] MEDS: AMLODIPINE 10MG TABLET PO SCH (09:37)
[2019-11-05] MEDS: FLUDROCORTISONE ACETATE 0.1MG TABLET PO SCH (09:37)
[2019-11-05] MEDS: HYDRALAZINE HCL 25MG TABLET PO SCH ×2 (09:37→21:19)
[2019-11-05] MEDS: INSULIN GLARGINE UD 100 UNITS/ML SYR SUBCUT SCH (09:49)
[2019-11-05] MEDS: SODIUM CHLORIDE 0.45% 1,000 ML IV SCH ×2 (09:50→17:50)
[2019-11-05 13:31] LABS: PLATELET ESTIMATE NORMAL
[2019-11-05] MEDS: POLYETHYLENE GLYCOL 3350 (17GM) 1 DOSE PACK PO SCH (19:38)
[2019-11-05] MEDS ORDERED: LOPERAMIDE HCL 1 MG/7.5 ML 240ML BOTTLE GT PRN (20:15)
[2019-11-05] MEDS ORDERED: DIPHENOXYLATE/ATROPINE 2.5/0.025MG TABLET PO PRN (20:15)
[2019-11-06] VITALS (12 sets, daily range): BP systolic 108–152; BP diastolic 58–95
[2019-11-06] MEDS: IPRATROPIUM/ALBUTEROL 0.5-3(2.5)MG/3ML NEB ORI SCH ×4 (00:08→20:40)
[2019-11-06] MEDS: METOPROLOL TARTRATE 25MG TABLET PO SCH ×3 (05:39→21:04)
[2019-11-06] MEDS: BLOOD SUGAR DIAGNOSTIC STRIP TEST SCH ×4 (07:30→21:04)
[2019-11-06] MEDS: DOCUSATE SODIUM SUGAR FREE 100MG/10ML UDC NG SCH ×2 (08:24→17:00)
[2019-11-06] MEDS: INSULIN LISPRO 100 UNITS/ML SUBCUT SCH ×4 (08:56→21:09)
[2019-11-06] MEDS: INSULIN GLARGINE UD 100 UNITS/ML SYR SUBCUT SCH (10:22)
[2019-11-06] MEDS: FLUDROCORTISONE ACETATE 0.1MG TABLET PO SCH (10:25)
[2019-11-06] MEDS: HYDRALAZINE HCL 25MG TABLET PO SCH ×2 (10:25→21:04)
[2019-11-06] MEDS: AMLODIPINE 10MG TABLET PO SCH (10:26)
[2019-11-06] MEDS ORDERED: LOPERAMIDE 2MG/15ML UDC GT PRN (12:30)
[2019-11-06] MEDS: SODIUM CHLORIDE 0.45% 1,000 ML IV SCH (13:22)
[2019-11-06] MEDS: POLYETHYLENE GLYCOL 3350 (17GM) 1 DOSE PACK PO SCH (21:00)
[2019-11-07] VITALS (12 sets, daily range): BP systolic 107–146; BP diastolic 23–75
[2019-11-07] MEDS: IPRATROPIUM/ALBUTEROL 0.5-3(2.5)MG/3ML NEB ORI SCH ×5 (00:51→21:03)
[2019-11-07] MEDS: ACETAMINOPHEN 650MG/20.3ML UDC PO PRN ×2 (01:43→13:35)
[2019-11-07] MEDS: SODIUM CHLORIDE 0.45% 1,000 ML IV SCH ×2 (05:51→18:33)
[2019-11-07] MEDS: METOPROLOL TARTRATE 25MG TABLET PO SCH ×3 (05:51→21:25)
[2019-11-07] MEDS: BLOOD SUGAR DIAGNOSTIC STRIP TEST SCH ×4 (07:32→21:24)
[2019-11-07] MEDS: INSULIN LISPRO 100 UNITS/ML SUBCUT SCH ×4 (07:39→21:24)
[2019-11-07] MEDS: DOCUSATE SODIUM SUGAR FREE 100MG/10ML UDC NG SCH ×2 (09:00→17:00)
[2019-11-07] MEDS: HYDRALAZINE HCL 25MG TABLET PO SCH (09:49)
[2019-11-07] MEDS: INSULIN GLARGINE UD 100 UNITS/ML SYR SUBCUT SCH (09:49)
[2019-11-07] MEDS: FLUDROCORTISONE ACETATE 0.1MG TABLET PO SCH (09:49)
[2019-11-07] MEDS: AMLODIPINE 10MG TABLET PO SCH (09:50)
[2019-11-07] MEDS: POLYETHYLENE GLYCOL 3350 (17GM) 1 DOSE PACK PO SCH (21:00)
[2019-11-08] VITALS (12 sets, daily range): BP systolic 100–148; BP diastolic 40–80
[2019-11-08] MEDS: IPRATROPIUM/ALBUTEROL 0.5-3(2.5)MG/3ML NEB ORI SCH ×4 (04:00→11:51)
[2019-11-08] MEDS: METOPROLOL TARTRATE 25MG TABLET PO SCH ×3 (05:44→22:41)
[2019-11-08] MEDS: BLOOD SUGAR DIAGNOSTIC STRIP TEST SCH ×4 (07:30→23:57)
[2019-11-08] MEDS: AMLODIPINE 10MG TABLET PO SCH (08:16)
[2019-11-08] MEDS: INSULIN LISPRO 100 UNITS/ML SUBCUT SCH ×3 (08:17→18:20)
[2019-11-08] MEDS: DOCUSATE SODIUM SUGAR FREE 100MG/10ML UDC NG SCH ×2 (09:00→17:00)
[2019-11-08] MEDS: INSULIN GLARGINE UD 100 UNITS/ML SYR SUBCUT SCH (12:05)
[2019-11-08] MEDS: SODIUM CHLORIDE 0.45% 1,000 ML IV SCH (18:21)
[2019-11-08] MEDS: POLYETHYLENE GLYCOL 3350 (17GM) 1 DOSE PACK PO SCH (21:00)
[2019-11-09] VITALS (8 sets, daily range): BP systolic 114–136; BP diastolic 49–101
[2019-11-09] MEDS: INSULIN LISPRO 100 UNITS/ML SUBCUT SCH ×6 (00:06→23:56)
[2019-11-09] MEDS: METOPROLOL TARTRATE 25MG TABLET PO SCH ×3 (05:39→21:55)
[2019-11-09] MEDS: BLOOD SUGAR DIAGNOSTIC STRIP TEST SCH ×4 (05:40→23:56)
[2019-11-09] MEDS: IPRATROPIUM/ALBUTEROL 0.5-3(2.5)MG/3ML NEB ORI SCH ×5 (07:41→20:09)
[2019-11-09] MEDS: SODIUM CHLORIDE 0.45% 1,000 ML IV SCH ×2 (08:13→20:20)
[2019-11-09] MEDS: DOCUSATE SODIUM SUGAR FREE 100MG/10ML UDC NG SCH ×2 (08:13→17:00)
[2019-11-09] MEDS: AMLODIPINE 10MG TABLET PO SCH (09:00)
[2019-11-09] MEDS: INSULIN GLARGINE UD 100 UNITS/ML SYR SUBCUT SCH (09:33)
[2019-11-09] MEDS: ACETAMINOPHEN 650MG/20.3ML UDC PO PRN (14:06)
[2019-11-09] MEDS: POLYETHYLENE GLYCOL 3350 (17GM) 1 DOSE PACK PO SCH (21:00)
[2019-11-10] VITALS: BP 139/73
[2019-11-10] MEDS: IPRATROPIUM/ALBUTEROL 0.5-3(2.5)MG/3ML NEB ORI SCH ×4 (00:25→20:43)
[2019-11-10 04:00] VITALS: BP 143/90
[2019-11-10] MEDS: BLOOD SUGAR DIAGNOSTIC STRIP TEST SCH ×3 (06:00→18:24)
[2019-11-10] MEDS: METOPROLOL TARTRATE 25MG TABLET PO SCH ×3 (06:06→21:10)
[2019-11-10] MEDS: INSULIN LISPRO 100 UNITS/ML SUBCUT SCH ×3 (06:07→18:58)
[2019-11-10 08:00] VITALS: BP 141/80
[2019-11-10] MEDS: DOCUSATE SODIUM SUGAR FREE 100MG/10ML UDC NG SCH ×2 (09:00→17:00)
[2019-11-10] MEDS: AMLODIPINE 10MG TABLET PO SCH (09:00)
[2019-11-10 12:00] VITALS: BP 127/77
[2019-11-10] MEDS: SODIUM CHLORIDE 0.45% 1,000 ML IV SCH (13:13)
[2019-11-10] MEDS: INSULIN GLARGINE UD 100 UNITS/ML SYR SUBCUT SCH (13:22)
[2019-11-10] MEDS: ACETAMINOPHEN 650MG/20.3ML UDC PO PRN (13:23)
[2019-11-10 16:00] VITALS: BP 123/71
[2019-11-10 20:00] VITALS: BP 128/72
[2019-11-10] MEDS: POLYETHYLENE GLYCOL 3350 (17GM) 1 DOSE PACK PO SCH (21:00)
[2019-11-11] VITALS: BP 139/70
[2019-11-11] MEDS: IPRATROPIUM/ALBUTEROL 0.5-3(2.5)MG/3ML NEB ORI SCH ×3 (00:13→07:49)
[2019-11-11] MEDS: INSULIN LISPRO 100 UNITS/ML SUBCUT SCH ×4 (01:11→18:32)
[2019-11-11] MEDS: SODIUM CHLORIDE 0.45% 1,000 ML IV SCH ×2 (01:17→14:25)
[2019-11-11 04:00] VITALS: BP 135/59
[2019-11-11] MEDS: BLOOD SUGAR DIAGNOSTIC STRIP TEST SCH ×4 (05:34→18:26)
[2019-11-11] MEDS: METOPROLOL TARTRATE 25MG TABLET PO SCH ×3 (06:10→21:25)
[2019-11-11 08:00] VITALS: BP 135/78
[2019-11-11] MEDS: DOCUSATE SODIUM SUGAR FREE 100MG/10ML UDC NG SCH ×2 (08:38→17:00)
[2019-11-11] MEDS: ACETAMINOPHEN 650MG/20.3ML UDC PO PRN (09:27)
[2019-11-11] MEDS: INSULIN GLARGINE UD 100 UNITS/ML SYR SUBCUT SCH (09:28)
[2019-11-11 12:00] VITALS: BP 128/74
[2019-11-11 16:00] VITALS: BP 125/79
[2019-11-12] MEDS: INSULIN LISPRO 100 UNITS/ML SUBCUT SCH ×4 (01:01→17:49)
[2019-11-12] MEDS: SODIUM CHLORIDE 0.45% 1,000 ML IV SCH ×2 (05:50→16:33)
[2019-11-12] MEDS: BLOOD SUGAR DIAGNOSTIC STRIP TEST SCH ×4 (05:50→18:43)
[2019-11-12] MEDS: METOPROLOL TARTRATE 25MG TABLET PO SCH ×3 (05:50→21:14)
[2019-11-12 08:00] VITALS: BP 128/77
[2019-11-12] MEDS: DOCUSATE SODIUM SUGAR FREE 100MG/10ML UDC NG SCH ×2 (09:00→17:57)
[2019-11-12] MEDS: INSULIN GLARGINE UD 100 UNITS/ML SYR SUBCUT SCH (11:01)
[2019-11-12 12:00] VITALS: BP 148/90
[2019-11-12 16:00] VITALS: BP 114/69
[2019-11-12 20:00] VITALS: BP 116/62
[2019-11-12] MEDS: ACETAMINOPHEN 650MG/20.3ML UDC PO PRN (20:53)
[2019-11-13] VITALS: BP 131/76
[2019-11-13] MEDS: INSULIN LISPRO 100 UNITS/ML SUBCUT SCH ×4 (00:42→18:47)
[2019-11-13 03:58] VITALS: BP 152/67
[2019-11-13] MEDS: METOPROLOL TARTRATE 25MG TABLET PO SCH ×3 (05:13→21:04)
[2019-11-13] MEDS: BLOOD SUGAR DIAGNOSTIC STRIP TEST SCH ×4 (05:14→18:26)
[2019-11-13] MEDS: SODIUM CHLORIDE 0.45% 1,000 ML IV SCH ×2 (05:31→18:53)
[2019-11-13 08:00] VITALS: BP 136/74
[2019-11-13] MEDS: INSULIN GLARGINE UD 100 UNITS/ML SYR SUBCUT SCH (09:56)
[2019-11-13 12:00] VITALS: BP 129/82
[2019-11-13 16:00] VITALS: BP 130/82
[2019-11-13 20:00] VITALS: BP 116/93
[2019-11-14] VITALS (7 sets, daily range): BP systolic 120–135; BP diastolic 62–99
[2019-11-14] MEDS: ACETAMINOPHEN 650MG/20.3ML UDC PO PRN ×2 (00:53→23:29)
[2019-11-14] MEDS: INSULIN LISPRO 100 UNITS/ML SUBCUT SCH ×5 (01:19→23:25)
[2019-11-14] MEDS: BLOOD SUGAR DIAGNOSTIC STRIP TEST SCH ×5 (05:45→23:26)
[2019-11-14] MEDS: METOPROLOL TARTRATE 25MG TABLET PO SCH ×3 (05:51→21:13)
[2019-11-14] MEDS: SODIUM CHLORIDE 0.45% 1,000 ML IV SCH ×2 (08:13→21:11)
[2019-11-14] MEDS: INSULIN GLARGINE UD 100 UNITS/ML SYR SUBCUT SCH (10:02)
[2019-11-15] VITALS (9 sets, daily range): BP systolic 109–161; BP diastolic 49–84
[2019-11-15] MEDS: BLOOD SUGAR DIAGNOSTIC STRIP TEST SCH ×4 (05:48→23:36)
[2019-11-15] MEDS: METOPROLOL TARTRATE 25MG TABLET PO SCH ×3 (05:54→21:00)
[2019-11-15] MEDS: INSULIN LISPRO 100 UNITS/ML SUBCUT SCH ×4 (05:55→23:36)
[2019-11-15 06:13] LABS: BASOPHILS % 0.6 % (0.0-2.0); EOSINOPHILS % 4.7 % (0.0-5.0); HEMATOCRIT. 31.2 % (36.0-48.0); HEMOGLOBIN. 10.5 g/dL (12.0-16.0); LYMPHOCYTES % 29.2 % (20.0-50.0); MEAN CORPUSCULAR HEMOGLOBIN 30.7 pg (28.0-32.0); MEAN CORPUSCULAR VOLUME 91.4 fL (81.0-99.0); MEAN PLATELET VOLUME 8.8 fl (7.4-10.4); NEUTROPHILS % 59.5 % (40.0-76.0); PLATELET 328 x1000/uL (130-400); RED BLOOD CELL COUNT 3.41 mill/uL (4.2-5.4)
[2019-11-15 06:32] LABS: CHLORIDE 101 mEq/L (98-107)
[2019-11-15 06:41] LABS: PHOSPHORUS 4.4 mg/dL (2.5-4.9)
[2019-11-15] MEDS: INSULIN GLARGINE UD 100 UNITS/ML SYR SUBCUT SCH (09:54)
[2019-11-15] MEDS: SODIUM CHLORIDE 0.45% 1,000 ML IV SCH (11:10)
[2019-11-16] VITALS (9 sets, daily range): BP systolic 102–150; BP diastolic 61–77
[2019-11-16] MEDS: SODIUM CHLORIDE 0.45% 1,000 ML IV SCH (00:27)
[2019-11-16] MEDS: METOPROLOL TARTRATE 25MG TABLET PO SCH ×2 (05:55→13:51)
[2019-11-16] MEDS: INSULIN LISPRO 100 UNITS/ML SUBCUT SCH ×3 (05:55→17:20)
[2019-11-16] MEDS: BLOOD SUGAR DIAGNOSTIC STRIP TEST SCH ×3 (05:55→17:20)
[2019-11-16] MEDS: INSULIN GLARGINE UD 100 UNITS/ML SYR SUBCUT SCH (09:57)
[2019-11-16] MEDS ORDERED: NA PHOS,M-B/NA PHOS,DI-BA ENEMA 118ML PR NR (15:15)
[2019-11-16] MEDS: LACTULOSE 20G/30ML UDC PO SCH ×2 (15:22→16:33)
[2019-11-16] MEDS ORDERED: NA PHOS,M-B/NA PHOS,DI-BA ENEMA 118ML PR PRN (15:30)
== END 2019-11-16 20:31 | DRG 710 ==
LOC: ER 00:02 → 6WST 04:45 → SUPCPDRO 06:47 → ENRESERV 14:22 → 8WST 10-05 19:43 → 5EST 10-11 17:20 → 8WST 10-12 23:00 → 5EST 10-14 08:30
PROVIDERS: ADMIT Internal Medicine; ATTEND Internal Medicine
PROC: 4A00X4Z Measurement of Central Nervous Electrical Activity, External Approach (ICD-10-PCS; principal; 2019-10-11)
PROC: 0RG10K0 Fusion of Cervical Vertebral Joint with Nonautologous Tissue Substitute, Anterior Approach, Anterior Column, Open Approach (ICD-10-PCS; 2019-10-11)
PROC: 0RB30ZZ Excision of Cervical Vertebral Disc, Open Approach (ICD-10-PCS; 2019-10-11)
PROC: 02HV33Z Insertion of Infusion Device into Superior Vena Cava, Percutaneous Approach (ICD-10-PCS; 2019-10-19)
PROC: B548ZZA Ultrasonography of Superior Vena Cava, Guidance (ICD-10-PCS; 2019-10-19)
PROC: 0DH63UZ Insertion of Feeding Device into Stomach, Percutaneous Approach (ICD-10-PCS; 2019-10-26)
PROC: 0DB68ZX Excision of Stomach, Via Natural or Artificial Opening Endoscopic, Diagnostic (ICD-10-PCS; 2019-10-26)
PROC: 0D20XUZ Change Feeding Device in Upper Intestinal Tract, External Approach (ICD-10-PCS; 2019-11-01)
DX: A41.9 Sepsis, unspecified organism (principal); G82.50 Quadriplegia, unspecified; G92 Toxic encephalopathy; M48.02 Spinal stenosis, cervical region; E11.65 Type 2 diabetes mellitus with hyperglycemia; G95.20 Unspecified cord compression; N39.0 Urinary tract infection, site not specified; E03.9 Hypothyroidism, unspecified; E78.00 Pure hypercholesterolemia, unspecified; M47.22 Other spondylosis with radiculopathy, cervical region; M50.121 Cervical disc disorder at C4-C5 level with radiculopathy; W18.39XA Other fall on same level, initial encounter; D63.8 Anemia in other chronic diseases classified elsewhere; E11.22 Type 2 diabetes mellitus with diabetic chronic kidney disease; E78.5 Hyperlipidemia, unspecified; E87.6 Hypokalemia; I12.9 Hypertensive chronic kidney disease with stage 1 through stage 4 chronic kidney disease, or unspecified chronic kidney disease; I25.10 Atherosclerotic heart disease of native coronary artery without angina pectoris; J69.0 Pneumonitis due to inhalation of food and vomit; J96.00 Acute respiratory failure, unspecified whether with hypoxia or hypercapnia; K29.30 Chronic superficial gastritis without bleeding; M48.061 Spinal stenosis, lumbar region without neurogenic claudication; N18.9 Chronic kidney disease, unspecified; M19.90 Unspecified osteoarthritis, unspecified site; R13.12 Dysphagia, oropharyngeal phase; R29.6 Repeated falls; R26.9 Unspecified abnormalities of gait and mobility; R62.7 Adult failure to thrive; Z20.828 Contact with and (suspected) exposure to other viral communicable diseases; Z96.641 Presence of right artificial hip joint; Y93.89 Activity, other specified; Z79.4 Long term (current) use of insulin; Z90.49 Acquired absence of other specified parts of digestive tract; Z87.442 Personal history of urinary calculi; I25.2 Old myocardial infarction; Y92.098 Other place in other non-institutional residence as the place of occurrence of the external cause; Y99.8 Other external cause status; Z68.23 Body mass index [BMI] 23.0-23.9, adult; K94.23 Gastrostomy malfunction; Y83.3 Surgical operation with formation of external stoma as the cause of abnormal reaction of the patient, or of later complication, without mention of misadventure at the time of the procedure; Y92.238 Other place in hospital as the place of occurrence of the external cause; E44.1 Mild protein-calorie malnutrition
CPT/HCPCS: 36415; 36600; 70498; 70551; 71045; 72040; 72141; 72146; 76000; 76937; 80048; 80053; 80061; 80305; 81003; 82140; 82375; 82550; 82553; 82805; 82962; 83036; 83605; 83735; 83880; 84100; 84145; 84439; 84443; 84481; 84484; 85025; 85027; 85379; 87070; 88304; 88305; 88311; 88312; 88313; 92610; 93005; 93306; 93880; 93970; 94640; 94667; 97110; 97116; 97162; 97164; 97166; 97168; 97530; 97535; 99285; C1713; C1725; C9113; J0360; J0690; J0696; J1100; J1650; J1815; J1956; J2250; J2270; J2405; J2543; J2704; J2710; J2765; J3010; J3475; J3480; J3490; J7030; J7040; J7050; J7060; J7121; J7608; J8597; L0172; Q9967; U0003-CS

== ENCOUNTER 2019-11-16 20:15 | Inpatient (IN) | payer MEDICARE, MEDICAID ==
[~2019-11-16] VITALS: Ht 157.5 cm; Wt 57.2 kg
[2019-11-16 21:30] VITALS: BP 127/63
[2019-11-16] MEDS ORDERED: NA PHOS,M-B/NA PHOS,DI-BA ENEMA 118ML PR PRN (22:00)
[2019-11-16] MEDS ORDERED: DIPHENOXYLATE/ATROPINE 2.5/0.025MG TABLET PO PRN (22:00)
[2019-11-16] MEDS ORDERED: DEXTROSE 50% WATER 50ML SYRINGE IV PRN (22:15)
[2019-11-16] MEDS ORDERED: LOPERAMIDE HCL 2MG CAPSULE PO PRN (22:30)
[2019-11-16] MEDS: ACETAMINOPHEN 650MG/20.3ML UDC PO PRN (23:17)
[2019-11-16] MEDS: METOPROLOL TARTRATE 25MG TABLET PO SCH (23:17)
[2019-11-17] MEDS: INSULIN LISPRO 100 UNITS/ML SUBCUT SCH ×5 (00:39→23:39)
[2019-11-17] MEDS: BLOOD SUGAR DIAGNOSTIC STRIP TEST SCH ×5 (00:39→23:31)
[2019-11-17 02:19] VITALS: BP 127/63
[2019-11-17] MEDS: ACETAMINOPHEN 650MG/20.3ML UDC PO PRN ×3 (04:38→21:32)
[2019-11-17 06:31] LABS: CHLORIDE 102 mEq/L (98-107)
[2019-11-17] MEDS: METOPROLOL TARTRATE 25MG TABLET PO SCH ×3 (06:38→21:38)
[2019-11-17 06:51] LABS: BASOPHILS % 0.5 % (0.0-2.0); EOSINOPHILS % 3.8 % (0.0-5.0); HEMATOCRIT. 28.7 % (36.0-48.0); HEMOGLOBIN. 9.8 g/dL (12.0-16.0); LYMPHOCYTES % 36.9 % (20.0-50.0); MEAN CORPUSCULAR HEMOGLOBIN 31.5 pg (28.0-32.0); MEAN CORPUSCULAR VOLUME 92.6 fL (81.0-99.0); MEAN PLATELET VOLUME 8.2 fl (7.4-10.4); MONOCYTES % 6.5 % (2.0-8.0); NEUTROPHILS % 52.3 % (40.0-76.0); PLATELET 348 x1000/uL (130-400); RED CELL DISTRIBUTION WIDTH 16.5 % (11.6-14.6)
[2019-11-17 08:17] VITALS: BP 89/48
[2019-11-17] MEDS: INSULIN GLARGINE UD 100 UNITS/ML SYR SUBCUT SCH (10:00)
[2019-11-17 20:00] VITALS: BP 128/54
[2019-11-17] MEDS: LACTULOSE 20G/30ML UDC PO PRN (21:33)
[2019-11-17] MEDS: ZOLPIDEM TARTRATE 5MG TABLET PO PRN (23:30)
[2019-11-18] MEDS: METOPROLOL TARTRATE 25MG TABLET PO SCH ×3 (05:48→23:24)
[2019-11-18] MEDS: BLOOD SUGAR DIAGNOSTIC STRIP TEST SCH ×4 (05:48→23:45)
[2019-11-18 06:42] LABS: BASOPHILS % 0.4 % (0.0-2.0); HEMATOCRIT. 29.1 % (36.0-48.0); HEMOGLOBIN. 9.7 g/dL (12.0-16.0); LYMPHOCYTES % 36.8 % (20.0-50.0); MEAN CORPUSCULAR HEMOGLOBIN 30.7 pg (28.0-32.0); MEAN CORPUSCULAR VOLUME 91.8 fL (81.0-99.0); MEAN PLATELET VOLUME 9.5 fl (7.4-10.4); MONOCYTES % 5.6 % (2.0-8.0); NEUTROPHILS % 53.2 % (40.0-76.0); PLATELET 282 x1000/uL (130-400); RED BLOOD CELL COUNT 3.17 mill/uL (4.2-5.4); RED CELL DISTRIBUTION WIDTH 16.5 % (11.6-14.6)
[2019-11-18 06:59] LABS: CHLORIDE 100 mEq/L (98-107)
[2019-11-18 07:04] LABS: FERRITIN 108 ng/mL (10-291)
[2019-11-18 07:04] LABS: CLARITY URINE CLEAR (CLEAR); COLOR URINE YELLOW (YELLOW); KETONES URINE NEGATIVE (NEGATIVE); LEUKOCYTE ESTERASE URINE 3+ (NEGATIVE); NITRITE URINE NEGATIVE (NEGATIVE); OCCULT BLOOD URINE NEGATIVE (NEGATIVE); PH URINE 6.5 (4.5-8.0); PROTEIN URINE NEGATIVE (NEGATIVE); SPECIFIC GRAVITY URINE 1.016 (1.005-1.030)
[2019-11-18] MEDS: INSULIN LISPRO 100 UNITS/ML SUBCUT SCH ×4 (07:05→23:45)
[2019-11-18 07:28] LABS: CREATINE KINASE 77 IU/L (26-192)
[2019-11-18 07:29] LABS: PHOSPHORUS 4.8 mg/dL (2.5-4.9)
[2019-11-18 07:30] LABS: HDL CHOLESTEROL 40 mg/dL (40-59); LDL CHOLESTEROL 114 mg/dL (5-100)
[2019-11-18 07:31] LABS: TOTAL IRON BINDING CAPACITY 235 ug/dL (250-450)
[2019-11-18 07:33] LABS: T4 FREE 0.84 ng/dL (0.76-1.46)
[2019-11-18 08:00] VITALS: BP 111/57
[2019-11-18 08:54] LABS: VITAMIN B12 SERUM > 2000.0 pg/mL (211-911)
[2019-11-18] MEDS: INSULIN GLARGINE UD 100 UNITS/ML SYR SUBCUT SCH (10:30)
[2019-11-18] MEDS: ACETAMINOPHEN 650MG/20.3ML UDC PO PRN (12:21)
[2019-11-18 20:00] VITALS: BP 142/72
[2019-11-18] MEDS: LACTULOSE 20G/30ML UDC PO SCH (23:22)
[2019-11-19] MEDS: METOPROLOL TARTRATE 25MG TABLET PO SCH ×3 (06:03→21:29)
[2019-11-19] MEDS: BLOOD SUGAR DIAGNOSTIC STRIP TEST SCH ×3 (06:06→18:29)
[2019-11-19] MEDS: LACTULOSE 20G/30ML UDC PO SCH ×3 (06:13→21:29)
[2019-11-19] MEDS: INSULIN LISPRO 100 UNITS/ML SUBCUT SCH ×3 (07:38→13:40)
[2019-11-19 08:00] VITALS: BP 111/37
[2019-11-19] MEDS ORDERED: BARIUM SULFATE 176 GM SUSP.RECON ONE (09:35)
[2019-11-19] MEDS: INSULIN GLARGINE UD 100 UNITS/ML SYR SUBCUT SCH ×2 (10:43→10:51)
[2019-11-19] MEDS: LEVOTHYROXINE SODIUM 100MCG TABLET PO SCH (13:38)
[2019-11-19] MEDS: FLUCONAZOLE 100MG TABLET PO SCH (16:05)
[2019-11-19 20:00] VITALS: BP 135/71
[2019-11-19] MEDS: ZOLPIDEM TARTRATE 5MG TABLET PO PRN (21:29)
[2019-11-20] MEDS: BLOOD SUGAR DIAGNOSTIC STRIP TEST SCH ×4 (00:47→17:49)
[2019-11-20 02:06] VITALS: BP 129/66
[2019-11-20] MEDS: INSULIN LISPRO 100 UNITS/ML SUBCUT SCH ×4 (06:00→17:49)
[2019-11-20] MEDS: LACTULOSE 20G/30ML UDC PO SCH (06:30)
[2019-11-20] MEDS: METOPROLOL TARTRATE 25MG TABLET PO SCH ×3 (06:30→21:35)
[2019-11-20] MEDS: LEVOTHYROXINE SODIUM 100MCG TABLET PO SCH (06:33)
[2019-11-20 08:00] VITALS: BP 92/36
[2019-11-20] MEDS: FLUCONAZOLE 100MG TABLET PO SCH (09:12)
[2019-11-20 13:10] VITALS: BP 109/74
[2019-11-20 20:00] VITALS: BP 130/74
[2019-11-21] MEDS: BLOOD SUGAR DIAGNOSTIC STRIP TEST SCH ×5 (00:19→23:03)
[2019-11-21] MEDS: ACETAMINOPHEN 650MG/20.3ML UDC PO PRN ×3 (03:55→23:03)
[2019-11-21] MEDS: METOPROLOL TARTRATE 25MG TABLET PO SCH ×3 (05:34→21:19)
[2019-11-21] MEDS: INSULIN LISPRO 100 UNITS/ML SUBCUT SCH ×5 (05:52→23:03)
[2019-11-21] MEDS: LEVOTHYROXINE SODIUM 100MCG TABLET PO SCH (06:08)
[2019-11-21 08:18] VITALS: BP 147/71
[2019-11-21] MEDS: FLUCONAZOLE 100MG TABLET PO SCH (08:39)
[2019-11-21] MEDS: INSULIN GLARGINE UD 100 UNITS/ML SYR SUBCUT SCH (09:45)
[2019-11-21] MEDS: DULOXETINE HCL 20MG DR CAPSULE PO SCH (13:22)
[2019-11-21 20:00] VITALS: BP 128/65
[2019-11-22] MEDS: ACETAMINOPHEN 650MG/20.3ML UDC PO PRN (05:59)
[2019-11-22] MEDS: BLOOD SUGAR DIAGNOSTIC STRIP TEST SCH ×3 (06:00→17:39)
[2019-11-22] MEDS: LEVOTHYROXINE SODIUM 100MCG TABLET PO SCH (06:00)
[2019-11-22] MEDS: METOPROLOL TARTRATE 25MG TABLET PO SCH ×3 (06:00→21:56)
[2019-11-22] MEDS: INSULIN LISPRO 100 UNITS/ML SUBCUT SCH ×3 (06:27→17:40)
[2019-11-22 07:09] LABS: 25-HYDROXY VITAMIN D3 16 ng/mL (.)
[2019-11-22 08:00] VITALS: BP 87/55
[2019-11-22] MEDS: FLUCONAZOLE 100MG TABLET PO SCH (09:03)
[2019-11-22] MEDS: DULOXETINE HCL 20MG DR CAPSULE PO SCH (09:03)
[2019-11-22] MEDS: INSULIN GLARGINE UD 100 UNITS/ML SYR SUBCUT SCH (09:09)
[2019-11-22 09:35] LABS: BASOPHILS % 1.1 % (0.0-2.0); HEMATOCRIT. 31.4 % (36.0-48.0); HEMOGLOBIN. 10.4 g/dL (12.0-16.0); LYMPHOCYTES % 44.3 % (20.0-50.0); MEAN CORPUSCULAR HEMOGLOBIN 30.5 pg (28.0-32.0); MEAN CORPUSCULAR VOLUME 92.5 fL (81.0-99.0); MEAN PLATELET VOLUME 9.9 fl (7.4-10.4); MONOCYTES % 6.3 % (2.0-8.0); NEUTROPHILS % 43.3 % (40.0-76.0); PLATELET 206 x1000/uL (130-400); RED CELL DISTRIBUTION WIDTH 16.8 % (11.6-14.6)
[2019-11-22 09:45] LABS: CHLORIDE 101 mEq/L (98-107)
[2019-11-22] MEDS: ERGOCALCIFEROL 50000UNITS CAPSULE PO SCH (17:41)
[2019-11-22 20:00] VITALS: BP 112/69
[2019-11-22] MEDS: LACTULOSE 20G/30ML UDC PO PRN (21:56)
[2019-11-23] MEDS: INSULIN LISPRO 100 UNITS/ML SUBCUT SCH ×5 (06:00→21:00)
[2019-11-23] MEDS: METOPROLOL TARTRATE 25MG TABLET PO SCH ×3 (06:27→21:10)
[2019-11-23] MEDS: LEVOTHYROXINE SODIUM 100MCG TABLET PO SCH (06:27)
[2019-11-23] MEDS: BLOOD SUGAR DIAGNOSTIC STRIP TEST SCH ×5 (06:28→21:10)
[2019-11-23 08:00] VITALS: BP 123/64
[2019-11-23] MEDS: FLUCONAZOLE 100MG TABLET PO SCH (09:11)
[2019-11-23] MEDS: DULOXETINE HCL 20MG DR CAPSULE PO SCH (09:11)
[2019-11-23] MEDS: INSULIN GLARGINE UD 100 UNITS/ML SYR SUBCUT SCH (10:19)
[2019-11-23] MEDS: ACETAMINOPHEN 650MG/20.3ML UDC PO PRN ×2 (18:11→23:51)
[2019-11-23 20:00] VITALS: BP 97/50
[2019-11-23] MEDS: LACTULOSE 20G/30ML UDC PO PRN ×2 (21:09→21:12)
[2019-11-24] MEDS: LEVOTHYROXINE SODIUM 100MCG TABLET PO SCH (06:02)
[2019-11-24] MEDS: METOPROLOL TARTRATE 25MG TABLET PO SCH ×3 (06:02→21:49)
[2019-11-24] MEDS: BLOOD SUGAR DIAGNOSTIC STRIP TEST SCH ×4 (06:02→21:49)
[2019-11-24] MEDS: INSULIN LISPRO 100 UNITS/ML SUBCUT SCH ×4 (06:09→21:00)
[2019-11-24] MEDS: LACTULOSE 20G/30ML UDC PO PRN (07:27)
[2019-11-24] MEDS: ACETAMINOPHEN 650MG/20.3ML UDC PO PRN (07:27)
[2019-11-24] MEDS: MULTIVITAMINS,THER W-MINERALS TABLET PO SCH (09:43)
[2019-11-24] MEDS: DULOXETINE HCL 30MG DR CAPSULE PO SCH (09:43)
[2019-11-24] MEDS: INSULIN GLARGINE UD 100 UNITS/ML SYR SUBCUT SCH (09:44)
[2019-11-24] MEDS ORDERED: LEVO100T9 PO (10:00)
[2019-11-24] MEDS ORDERED: LANTUSUD SUBCUT (10:00)
[2019-11-24] MEDS ORDERED: METO25TA6 PO (10:00)
[2019-11-24] MEDS ORDERED: DULO30CA2 PO (10:00)
[2019-11-24 20:00] VITALS: BP 107/55
[2019-11-25] MEDS: ACETAMINOPHEN 650MG/20.3ML UDC PO PRN ×2 (05:11→10:52)
[2019-11-25] MEDS: METOPROLOL TARTRATE 25MG TABLET PO SCH ×3 (06:00→21:05)
[2019-11-25] MEDS: LEVOTHYROXINE SODIUM 100MCG TABLET PO SCH (06:20)
[2019-11-25] MEDS: BLOOD SUGAR DIAGNOSTIC STRIP TEST SCH ×4 (06:20→21:10)
[2019-11-25 07:04] LABS: BASOPHILS % 0.4 % (0.0-2.0); EOSINOPHILS % 4.9 % (0.0-5.0); HEMATOCRIT. 28.2 % (36.0-48.0); HEMOGLOBIN. 9.1 g/dL (12.0-16.0); LYMPHOCYTES % 52.1 % (20.0-50.0); MEAN CORPUSCULAR HEMOGLOBIN 30.5 pg (28.0-32.0); MEAN CORPUSCULAR VOLUME 94.6 fL (81.0-99.0); MEAN PLATELET VOLUME 8.2 fl (7.4-10.4); MONOCYTES % 6.1 % (2.0-8.0); NEUTROPHILS % 36.5 % (40.0-76.0); PLATELET 313 x1000/uL (130-400); RED BLOOD CELL COUNT 2.98 mill/uL (4.2-5.4); RED CELL DISTRIBUTION WIDTH 17.2 % (11.6-14.6)
[2019-11-25 07:07] LABS: CHLORIDE 106 mEq/L (98-107)
[2019-11-25] MEDS: DULOXETINE HCL 30MG DR CAPSULE PO SCH (08:01)
[2019-11-25] MEDS: INSULIN LISPRO 100 UNITS/ML SUBCUT SCH ×4 (08:01→21:04)
[2019-11-25] MEDS: MULTIVITAMINS,THER W-MINERALS TABLET PO SCH (08:01)
[2019-11-25 08:02] VITALS: BP 100/50
[2019-11-25] MEDS: INSULIN GLARGINE UD 100 UNITS/ML SYR SUBCUT SCH (09:47)
[2019-11-25 20:00] VITALS: BP 114/63
[2019-11-25] MEDS: LACTULOSE 20G/30ML UDC PO PRN (21:10)
[2019-11-26] MEDS: ACETAMINOPHEN 650MG/20.3ML UDC PO PRN ×2 (03:28→17:22)
[2019-11-26] MEDS: BLOOD SUGAR DIAGNOSTIC STRIP TEST SCH ×4 (05:37→21:28)
[2019-11-26] MEDS: LEVOTHYROXINE SODIUM 100MCG TABLET PO SCH (06:25)
[2019-11-26] MEDS: METOPROLOL TARTRATE 25MG TABLET PO SCH ×3 (06:25→21:28)
[2019-11-26 08:00] VITALS: BP 125/68
[2019-11-26] MEDS: DULOXETINE HCL 30MG DR CAPSULE PO SCH (08:33)
[2019-11-26] MEDS: MULTIVITAMINS,THER W-MINERALS TABLET PO SCH (08:33)
[2019-11-26] MEDS: INSULIN LISPRO 100 UNITS/ML SUBCUT SCH ×4 (08:34→21:26)
[2019-11-26] MEDS: PREGABALIN 25MG CAPSULE PO SCH ×2 (09:05→21:26)
[2019-11-26 09:24] LABS: CHLORIDE 107 mEq/L (98-107)
[2019-11-26] MEDS: INSULIN GLARGINE UD 100 UNITS/ML SYR SUBCUT SCH (10:48)
[2019-11-26 20:00] VITALS: BP 106/55
[2019-11-27] MEDS: BLOOD SUGAR DIAGNOSTIC STRIP TEST SCH ×4 (05:43→21:12)
[2019-11-27] MEDS: METOPROLOL TARTRATE 25MG TABLET PO SCH ×3 (06:08→21:12)
[2019-11-27] MEDS: LEVOTHYROXINE SODIUM 100MCG TABLET PO SCH (06:08)
[2019-11-27 08:00] VITALS: BP 114/51
[2019-11-27] MEDS: INSULIN LISPRO 100 UNITS/ML SUBCUT SCH ×4 (09:00→21:00)
[2019-11-27] MEDS: PREGABALIN 25MG CAPSULE PO SCH ×2 (10:44→21:12)
[2019-11-27] MEDS: MULTIVITAMINS,THER W-MINERALS TABLET PO SCH (10:44)
[2019-11-27] MEDS: DULOXETINE HCL 30MG DR CAPSULE PO SCH (10:44)
[2019-11-27] MEDS: INSULIN GLARGINE UD 100 UNITS/ML SYR SUBCUT SCH (10:47)
[2019-11-27] MEDS: ACETAMINOPHEN 650MG/20.3ML UDC PO PRN ×2 (10:50→13:55)
[2019-11-27 20:00] VITALS: BP 123/59
[2019-11-28] MEDS: BLOOD SUGAR DIAGNOSTIC STRIP TEST SCH ×4 (06:32→21:34)
[2019-11-28] MEDS: LEVOTHYROXINE SODIUM 100MCG TABLET PO SCH (06:32)
[2019-11-28] MEDS: METOPROLOL TARTRATE 25MG TABLET PO SCH ×3 (06:33→21:34)
[2019-11-28 08:00] VITALS: BP 107/56
[2019-11-28] MEDS: INSULIN LISPRO 100 UNITS/ML SUBCUT SCH ×4 (09:00→21:57)
[2019-11-28] MEDS: PREGABALIN 25MG CAPSULE PO SCH ×2 (09:30→21:34)
[2019-11-28] MEDS: DULOXETINE HCL 30MG DR CAPSULE PO SCH (09:30)
[2019-11-28] MEDS: MULTIVITAMINS,THER W-MINERALS TABLET PO SCH (09:30)
[2019-11-28] MEDS: INSULIN GLARGINE UD 100 UNITS/ML SYR SUBCUT SCH (09:32)
[2019-11-28 23:33] VITALS: BP 122/68
[2019-11-29] MEDS: BLOOD SUGAR DIAGNOSTIC STRIP TEST SCH ×4 (06:00→21:05)
[2019-11-29] MEDS: METOPROLOL TARTRATE 25MG TABLET PO SCH ×3 (06:00→21:05)
[2019-11-29] MEDS: LEVOTHYROXINE SODIUM 100MCG TABLET PO SCH (06:00)
[2019-11-29 08:28] VITALS: BP 130/61
[2019-11-29] MEDS: MULTIVITAMINS,THER W-MINERALS TABLET PO SCH (08:37)
[2019-11-29] MEDS: ERGOCALCIFEROL 50000UNITS CAPSULE PO SCH (08:38)
[2019-11-29] MEDS: INSULIN LISPRO 100 UNITS/ML SUBCUT SCH ×4 (08:38→21:00)
[2019-11-29] MEDS: DULOXETINE HCL 30MG DR CAPSULE PO SCH (08:38)
[2019-11-29] MEDS: PREGABALIN 25MG CAPSULE PO SCH ×2 (08:38→21:05)
[2019-11-29] MEDS: INSULIN GLARGINE UD 100 UNITS/ML SYR SUBCUT SCH (10:27)
[2019-11-29 20:00] VITALS: BP 101/66
[2019-11-30] MEDS: LEVOTHYROXINE SODIUM 100MCG TABLET PO SCH (06:18)
[2019-11-30] MEDS: METOPROLOL TARTRATE 25MG TABLET PO SCH ×3 (06:18→22:32)
[2019-11-30] MEDS: BLOOD SUGAR DIAGNOSTIC STRIP TEST SCH ×4 (06:18→22:05)
[2019-11-30] MEDS: INSULIN LISPRO 100 UNITS/ML SUBCUT SCH ×4 (06:19→22:29)
[2019-11-30 06:26] LABS: CHLORIDE 106 mEq/L (98-107)
[2019-11-30 06:49] LABS: BASOPHILS % 0.8 % (0.0-2.0); EOSINOPHILS % 4.6 % (0.0-5.0); HEMOGLOBIN. 9.9 g/dL (12.0-16.0); MEAN CORPUSCULAR HEMOGLOBIN 30.7 pg (28.0-32.0); MEAN CORPUSCULAR VOLUME 92.9 fL (81.0-99.0); MEAN PLATELET VOLUME 8.1 fl (7.4-10.4); MONOCYTES % 6.3 % (2.0-8.0); NEUTROPHILS % 38.3 % (40.0-76.0); PLATELET 231 x1000/uL (130-400); RED BLOOD CELL COUNT 3.22 mill/uL (4.2-5.4); RED CELL DISTRIBUTION WIDTH 17.1 % (11.6-14.6)
[2019-11-30 07:54] VITALS: BP 108/51
[2019-11-30] MEDS: PREGABALIN 25MG CAPSULE PO SCH ×2 (10:14→22:15)
[2019-11-30] MEDS: DULOXETINE HCL 30MG DR CAPSULE PO SCH (10:14)
[2019-11-30] MEDS: MULTIVITAMINS,THER W-MINERALS TABLET PO SCH (10:14)
[2019-11-30] MEDS: INSULIN GLARGINE UD 100 UNITS/ML SYR SUBCUT SCH (10:21)
[2019-11-30 20:00] VITALS: BP 131/61
[2019-11-30] MEDS: LACTULOSE 20G/30ML UDC PO PRN (22:23)
[2019-11-30] MEDS: ACETAMINOPHEN 650MG/20.3ML UDC PO PRN (22:23)
[2019-12-01] MEDS: METOPROLOL TARTRATE 25MG TABLET PO SCH ×3 (06:24→21:33)
[2019-12-01] MEDS: BLOOD SUGAR DIAGNOSTIC STRIP TEST SCH ×4 (06:25→21:30)
[2019-12-01] MEDS: LEVOTHYROXINE SODIUM 100MCG TABLET PO SCH (06:25)
[2019-12-01] MEDS: INSULIN LISPRO 100 UNITS/ML SUBCUT SCH ×4 (06:25→21:39)
[2019-12-01 08:03] VITALS: BP 125/62
[2019-12-01] MEDS: DULOXETINE HCL 30MG DR CAPSULE PO SCH (09:00)
[2019-12-01] MEDS: PREGABALIN 25MG CAPSULE PO SCH ×2 (10:44→21:32)
[2019-12-01] MEDS: MULTIVITAMINS,THER W-MINERALS TABLET PO SCH (10:45)
[2019-12-01] MEDS: INSULIN GLARGINE UD 100 UNITS/ML SYR SUBCUT SCH (10:47)
[2019-12-01 20:00] VITALS: BP 119/58
[2019-12-01] MEDS: ACETAMINOPHEN 650MG/20.3ML UDC PO PRN (23:32)
[2019-12-02] MEDS: LEVOTHYROXINE SODIUM 100MCG TABLET PO SCH (06:07)
[2019-12-02] MEDS: METOPROLOL TARTRATE 25MG TABLET PO SCH ×3 (06:15→21:06)
[2019-12-02] MEDS: BLOOD SUGAR DIAGNOSTIC STRIP TEST SCH ×4 (06:15→21:07)
[2019-12-02] MEDS: INSULIN LISPRO 100 UNITS/ML SUBCUT SCH ×4 (06:16→21:04)
[2019-12-02 08:00] VITALS: BP 127/64
[2019-12-02] MEDS: PREGABALIN 25MG CAPSULE PO SCH ×2 (09:21→21:02)
[2019-12-02] MEDS: MULTIVITAMINS,THER W-MINERALS TABLET PO SCH (09:21)
[2019-12-02] MEDS: DULOXETINE HCL 30MG DR CAPSULE PO SCH (09:21)
[2019-12-02] MEDS: INSULIN GLARGINE UD 100 UNITS/ML SYR SUBCUT SCH (09:35)
[2019-12-02 13:00] VITALS: BP 151/60
[2019-12-02 20:00] VITALS: BP 127/51
[2019-12-03] MEDS: ACETAMINOPHEN 650MG/20.3ML UDC PO PRN ×3 (02:14→20:35)
[2019-12-03] MEDS: BLOOD SUGAR DIAGNOSTIC STRIP TEST SCH ×4 (05:38→20:35)
[2019-12-03] MEDS: METOPROLOL TARTRATE 25MG TABLET PO SCH ×3 (05:49→21:31)
[2019-12-03] MEDS: LEVOTHYROXINE SODIUM 100MCG TABLET PO SCH (06:00)
[2019-12-03 08:00] VITALS: BP 107/44
[2019-12-03] MEDS: INSULIN LISPRO 100 UNITS/ML SUBCUT SCH ×4 (08:35→20:36)
[2019-12-03] MEDS: MULTIVITAMINS,THER W-MINERALS TABLET PO SCH (08:35)
[2019-12-03] MEDS: DULOXETINE HCL 30MG DR CAPSULE PO SCH (08:35)
[2019-12-03] MEDS: PREGABALIN 25MG CAPSULE PO SCH ×2 (08:35→20:34)
[2019-12-03] MEDS: INSULIN GLARGINE UD 100 UNITS/ML SYR SUBCUT SCH (09:25)
[2019-12-03 20:00] VITALS: BP 117/57
[2019-12-04] MEDS: METOPROLOL TARTRATE 25MG TABLET PO SCH ×2 (06:00→13:20)
[2019-12-04] MEDS: BLOOD SUGAR DIAGNOSTIC STRIP TEST SCH ×2 (06:05→10:51)
[2019-12-04] MEDS: LEVOTHYROXINE SODIUM 100MCG TABLET PO SCH (06:07)
[2019-12-04 07:48] VITALS: BP 118/61
[2019-12-04] MEDS: PREGABALIN 25MG CAPSULE PO SCH (08:26)
[2019-12-04] MEDS: MULTIVITAMINS,THER W-MINERALS TABLET PO SCH (08:26)
[2019-12-04] MEDS: DULOXETINE HCL 30MG DR CAPSULE PO SCH (08:26)
[2019-12-04] MEDS: INSULIN LISPRO 100 UNITS/ML SUBCUT SCH ×2 (08:33→12:29)
[2019-12-04] MEDS: INSULIN GLARGINE UD 100 UNITS/ML SYR SUBCUT SCH (10:02)
[2019-12-04 13:47] VITALS: BP 120/52
== END 2019-12-04 14:30 | DRG 347 ==
PROVIDERS: ADMIT Physical Medicine & Rehabilitation Spinal Cord Injury Medicine; ATTEND Internal Medicine
DX: M48.02 Spinal stenosis, cervical region (principal); M48.061 Spinal stenosis, lumbar region without neurogenic claudication; N39.0 Urinary tract infection, site not specified; R13.10 Dysphagia, unspecified; F17.210 Nicotine dependence, cigarettes, uncomplicated; E78.5 Hyperlipidemia, unspecified; I10 Essential (primary) hypertension; G82.50 Quadriplegia, unspecified; G92 Toxic encephalopathy; D63.8 Anemia in other chronic diseases classified elsewhere; E03.9 Hypothyroidism, unspecified; E11.65 Type 2 diabetes mellitus with hyperglycemia; E44.0 Moderate protein-calorie malnutrition; E78.00 Pure hypercholesterolemia, unspecified; M47.812 Spondylosis without myelopathy or radiculopathy, cervical region; R42 Dizziness and giddiness; A41.9 Sepsis, unspecified organism; E55.9 Vitamin D deficiency, unspecified; E89.0 Postprocedural hypothyroidism; F32.9 Major depressive disorder, single episode, unspecified; I25.10 Atherosclerotic heart disease of native coronary artery without angina pectoris; J44.9 Chronic obstructive pulmonary disease, unspecified; J69.0 Pneumonitis due to inhalation of food and vomit; J96.00 Acute respiratory failure, unspecified whether with hypoxia or hypercapnia; K29.70 Gastritis, unspecified, without bleeding; K85.90 Acute pancreatitis without necrosis or infection, unspecified; R62.7 Adult failure to thrive; R29.6 Repeated falls; Z96.641 Presence of right artificial hip joint; Z96.651 Presence of right artificial knee joint; Z98.1 Arthrodesis status; Z79.4 Long term (current) use of insulin; Z91.81 History of falling; Z93.1 Gastrostomy status; Z88.8 Allergy status to other drugs, medicaments and biological substances; Z79.899 Other long term (current) drug therapy; Z79.82 Long term (current) use of aspirin; Z90.49 Acquired absence of other specified parts of digestive tract; Z91.19 Patient's noncompliance with other medical treatment and regimen; Z98.42 Cataract extraction status, left eye; Z98.41 Cataract extraction status, right eye; Z68.23 Body mass index [BMI] 23.0-23.9, adult
CPT/HCPCS: 36415; 71046; 74230; 80048; 80053; 80061; 81003; 82040; 82140; 82306; 82533; 82550; 82607; 82728; 82746; 82962; 83036; 83540; 83550; 83735; 84100; 84134; 84439; 84443; 84481; 85025; 87106; 92523; 92610; 92611; 93970; 97110; 97112; 97116; 97162; 97167; 97530; 97535; J1815